=== PATIENT | male | born 1970 | race Caucasian/White ===

== ENCOUNTER 2024-10-24 06:52 | Emergency (ER) | payer BC ==
--- NOTE | 2024-10-24 07:21 | ED ---
General Adult HPI - General Chief complaint: Upper Respiratory Infection Stated complaint: cough Time Seen by Provider: 10/24/24 07:02 Source: patient, RN notes reviewed Mode of arrival: ambulatory Limitations: no limitations - History of Present Illness Initial comments: Patient is a 54-year-old male present to the emergency department not feeling well for the past 3 days. Patient has congestion and cough. Patient has headache. Patient has had significant fatigue. Patient feels achy all over. Patient states cough has caused emesis. Patient has decreased appetite. Patient has had a couple episodes of diarrhea. Patient has not ate much in the last 2 to 3 days and is concerned about being a little bit dehydrated. - Related Data Previous Rx's Medication Instructions Recorded Ondansetron Odt [Zofran Odt] 4 mg PO Q8HR PRN #10 tab 10/24/24 Allergies Allergy/AdvReac Type Severity Reaction Status Date / Time No Known Allergies Allergy Verified 10/24/24 06:59 Review of Systems ROS Statement: Those systems with pertinent positive or pertinent negative responses have been documented in the HPI. ROS Other: All systems not noted in ROS Statement are negative. Constitutional: Denies: fever Eyes: Denies: eye pain ENT: Reports: congestion. Denies: ear pain Respiratory: Reports: cough Cardiovascular: Denies: palpitations Endocrine: Reports: fatigue Gastrointestinal: Reports: nausea Skin: Denies: rash Neurological: Reports: headache. Denies: weakness, confusion Past Medical History Past Medical History: No Reported History History of Any Multi-Drug Resistant Organisms: None Reported Past Surgical History: No Surgical Hx Reported Past Psychological History: No Psychological Hx Reported Smoking Status: Former smoker Past Alcohol Use History: Occasional Past Drug Use History: None Reported General Exam Limitations: no limitations General appearance: alert, in no apparent distress Head exam: Present: atraumatic Eye exam: Present: normal appearance, PERRL ENT exam: Present: normal oropharynx Neck exam: Present: normal inspection. Absent: tenderness, meningismus Respiratory exam: Present: normal lung sounds bilaterally Cardiovascular Exam: Present: regular rate, normal rhythm GI/Abdominal exam: Present: soft, tenderness (Mild diffuse tenderness) Extremities exam: Present: normal inspection. Absent: calf tenderness Neurological exam: Present: alert Psychiatric exam: Present: normal affect, normal mood Skin exam: Present: normal color Course Vital Signs 10/24/24 10/24/24 10/24/24 06:55 08:11 08:12 Temperature 98.2 F 97.9 F Pulse Rate 72 56 L Pulse Rate [ 58 L Production Assembly Supervisor ] Respiratory 18 17 Rate Blood Pressure 133/88 138/83 O2 Sat by Pulse 97 95 Oximetry 10/24/24 08:49 Temperature 97.7 F Pulse Rate 60 Pulse Rate [ Production Assembly Supervisor ] Respiratory 17 Rate Blood Pressure 126/89 O2 Sat by Pulse 94 L Oximetry EKG Findings - EKG Results: EKG: interpreted by ERMD (Left axis. Low voltage. Nonspecific T waves. Artifact present.), sinus rhythm Medical Decision Making - Medical Decision Making Was pt. sent in by a medical professional or institution (, PA, BIG DATA SOFTWARE ENGINEER, urgent ca re, hospital, or fci...) When possible be specific @ -No Did you speak to anyone other than the patient for history (EMS, parent, family, police, friend...)? What history was obtained from this source @ -No Did you review nursing and triage notes (agree or disagree)? Why? @ -I reviewed and agree with nursing and triage notes Were old charts reviewed (outside hosp., previous admission, EMS record, old EKG, old radiological studies, urgent care reports/EKG's, fci records)? Report findings @ -No old charts were reviewed Differential Diagnosis (chest pain, altered mental status, abdominal pain women, abdominal pain men, vaginal bleeding, weakness, fever, dyspnea, syncope, headache, dizziness, GI bleed, back pain, seizure, CVA, palpatations, mental health, musculoskeletal)? @ -Differential Fever: Pneumonia, viral URI, endocarditis, myocarditis, pericarditis, otitis, sinusitis, peritonsillar Abscess, retropharyngeal Abscess, epiglottitis, peritonitis, appendicitis, [place] cystitis, diverticulitis, hepatitis, colitis, UTI, PID, TOA, pyelonephritis, prostatitis, epididymitis, meningitis, encephalitis, pulmonary embolism, CVA, thyroid storm, pancreatitis, adrenal crisis, cavernous sinus thrombosis, this is not meant to be an all-inclusive list. EKG interpreted by me (3pts min.). @ -As above X-rays interpreted by me (1pt min.). @ -Chest x-ray shows no acute process CT interpreted by me (1pt min.). @ -None done U/S interpreted by me (1pt. min.). @ -None done What testing was considered but not performed or refused? (CT, X-rays, U/S, labs)? Why? @ -None What meds were considered but not given or refused? Why? @ -Consider Tamiflu however symptoms are greater than 48 hours Did you discuss the management of the patient with other professionals (mikey grimes i.e. , PA, BIG DATA SOFTWARE ENGINEER, lab, RT, psych nurse, social service director, reel tender, teacher, branch lending officer, case loader operator)? Give summary @ -No Was smoking cessation discussed for >3mins.? @ -No Was critical care preformed (if so, how long)? @ -No Were there social determinants of health that impacted care today? How? (Homelessness, low income, unemployed, alcoholism, drug addiction, transportation, low edu. Level, literacy, decrease access to med. care, care home, rehab)? @ -No Was there de-escalation of care discussed even if they declined (Discuss DNR or withdrawal of care, Hospice)? DNR status @ -No What co-morbidities impacted this encounter? (DM, HTN, Smoking, COPD, CAD, Cancer, CVA, ARF, Chemo, Hep., AIDS, mental health diagnosis, sleep apnea, morbid obesity)? @ -None Was patient admitted / discharged? Hospital course, mention meds given and route, prescriptions, significant lab abnormalities, going to OR and other pertinent info. @ -Patient presents with multiple complaints consistent with probable viral syndrome. Influenza positive, evaluation otherwise unremarkable. Patient reevaluated and updated. On reevaluation patient is resting comfortably in bed and does feel somewhat better. Patient to be discharged. Undiagnosed new problem with uncertain prognosis? @ -No Drug Therapy requiring intensive monitoring for toxicity (Heparin, Nitro, Insulin, Cardizem)? @ -No Were any procedures done? @ -No Diagnosis/symptom? @ -Influenza Acute, or Chronic, or Acute on Chronic? @ -Acute Uncomplicated (without systemic symptoms) or Complicated (systemic symptoms)? @ -Default Side effects of treatment? @ -No Exacerbation, Progression, or Severe Exacerbation? @ -No Poses a threat to life or bodily function? How? (Chest pain, [place], [place], pneumonia, PE, COPD, DKA, ARF, appy, cholecystitis, CVA, Diverticulitis, Homicidal, Suicidal, threat to staff... and all critical care pts) @ -No - Lab Data Result diagrams: 10/24/24 08:03 10/24/24 08:03 Lab Results 10/24/24 10/24/24 10/24/24 Range/Units 08:03 08:03 08:03 WBC 8.9 (3.8-10.6) k/uL RBC 4.93 (4.30-5.90) m/uL Hgb 15.2 (13.0-17.5) gm/dL Hct 44.3 (39.0-53.0) % MCV 89.7 (80.0-100.0) fL MCH 30.8 (25.0-35.0) pg MCHC 34.4 (31.0-37.0) g/dL RDW 12.5 (11.5-15.5) % Plt Count 283 (150-450) k/uL MPV 7.6 Neutrophils % 79 % Lymphocytes % 11 % Monocytes % 9 % Eosinophils % 0 % Basophils % 0 % Neutrophils # 7.0 (1.3-7.7) k/uL Lymphocytes # 1.0 (1.0-4.8) k/uL Monocytes # 0.8 (0-1.0) k/uL Eosinophils # 0.0 (0-0.7) k/uL Basophils # 0.0 (0-0.2) k/uL PT 10.5 (10.0-12.5) sec INR 0.9 (<1.2) APTT 23.8 (22.0-30.0) sec Sodium (137-145) mmol/L Potassium (3.5-5.1) mmol/L Chloride (98-107) mmol/L Carbon Dioxide (22-30) mmol/L Anion Gap mmol/L BUN (9-20) mg/dL Creatinine (0.66-1.25) mg/dL Est GFR (CKD-EPI)AfAm (>60 ml/min/1.73 sqM) Est GFR (CKD-EPI)NonAf (>60 ml/min/1.73 sqM) Glucose (74-99) mg/dL Plasma Lactic Acid Cas (0.7-2.0) mmol/L Calcium (8.4-10.2) mg/dL Magnesium (1.6-2.3) mg/dL Total Bilirubin (0.2-1.3) mg/dL AST (17-59) U/L ALT (4-49) U/L Alkaline Phosphatase (38-126) U/L Troponin I (0.000-0.034) ng/mL Total Protein (6.3-8.2) g/dL Albumin (3.5-5.0) g/dL Influenza Type A (PCR) Detected A (Not Detectd) Influenza Type B (PCR) Not Detected (Not Detectd) RSV (PCR) Not Detected (Not Detectd) SARS-CoV-2 (PCR) Not Detected (Not Detectd) 10/24/24 10/24/24 10/24/24 Range/Units 08:03 08:03 08:03 WBC (3.8-10.6) k/uL RBC (4.30-5.90) m/uL Hgb (13.0-17.5) gm/dL Hct (39.0-53.0) % MCV (80.0-100.0) fL MCH (25.0-35.0) pg MCHC (31.0-37.0) g/dL RDW (11.5-15.5) % Plt Count (150-450) k/uL MPV Neutrophils % % Lymphocytes % % Monocytes % % Eosinophils % % Basophils % % Neutrophils # (1.3-7.7) k/uL Lymphocytes # (1.0-4.8) k/uL Monocytes # (0-1.0) k/uL Eosinophils # (0-0.7) k/uL Basophils # (0-0.2) k/uL PT (10.0-12.5) sec INR (<1.2) APTT (22.0-30.0) sec Sodium 132 L (137-145) mmol/L Potassium 4.0 (3.5-5.1) mmol/L Chloride 96 L (98-107) mmol/L Carbon Dioxide 26 (22-30) mmol/L Anion Gap 10 mmol/L BUN 22 H (9-20) mg/dL Creatinine 0.81 (0.66-1.25) mg/dL Est GFR (CKD-EPI)AfAm >90 (>60 ml/min/1.73 sqM) Est GFR (CKD-EPI)NonAf >90 (>60 ml/min/1.73 sqM) Glucose 126 H (74-99) mg/dL Plasma Lactic Acid Cas 1.1 (0.7-2.0) mmol/L Calcium 8.8 (8.4-10.2) mg/dL Magnesium 2.3 (1.6-2.3) mg/dL Total Bilirubin 0.6 (0.2-1.3) mg/dL AST 29 (17-59) U/L ALT 33 (4-49) U/L Alkaline Phosphatase 70 (38-126) U/L Troponin I <0.012 (0.000-0.034) ng/mL Total Protein 6.9 (6.3-8.2) g/dL Albumin 4.0 (3.5-5.0) g/dL Influenza Type A (PCR) (Not Detectd) Influenza Type B (PCR) (Not Detectd) RSV (PCR) (Not Detectd) SARS-CoV-2 (PCR) (Not Detectd) Disposition Clinical Impression: Influenza Disposition: HOME SELF-CARE Condition: Stable Instructions (If sedation given, give patient instructions): Influenza (ED) Additional Instructions: Please follow-up with your primary care physician in the next few days for recheck. Prescription for nausea medication sent to pharmacy. [id number] Tylenol and Motrin as needed. Return for difficulty breathing, not tolerating o ral intake, worsening symptoms or other concerns. Prescriptions: Ondansetron Odt [Zofran Odt] 4 mg PO Q8HR PRN #10 tab PRN Reason: Nausea Is patient prescribed a controlled substance at d/c from ED?: No Referrals: None,Stated [Primary Care Provider] - 1-2 days Forms: Area PCPs Time of Disposition: 09:25
[2024-10-24] MEDS: SODIUM CHLORIDE 0.9% 1,000 ML IV STA (07:49)
[2024-10-24] MEDS: ACETAMINOPHEN IV (For NPO) 1,000 MG in EMPTY BAG 1 BAG IVPB STA (07:50)
[2024-10-24] MEDS: ONDANSETRON 4 MG/2 ML VIAL IVP STA (07:52)
[2024-10-24] MEDS: FAMOTIDINE 20 MG/2 ML VIAL IV STA (07:54)
--- NOTE | 2024-10-24 08:20 | XR ---
Chest, 2 view. HISTORY: Weakness COMPARISON: None TECHNIQUE: PA and lateral views the chest are obtained. FINDINGS: The lungs are clear and there is no consolidative or interstitial opacity. There is no pleural effusion or pneumothorax. There is mild cardiomegaly. The pulmonary vasculature is not congested. The osseous structures are intact. IMPRESSION: Mild cardiomegaly without overt CHF. No acute cardiopulmonary disease. [facility], , 10/24/2024 8:18 AM
[2024-10-24 08:36] LABS: Basophils % (A) 0 %; Eosinophils % (A) 0 %; HCT 44.3 % (39.0-53.0); HGB 15.2 gm/dL (13.0-17.5); Lymphocytes % (A) 11 %; MCH 30.8 pg (25.0-35.0); MCHC 34.4 g/dL (31.0-37.0); MCV 89.7 fL (80.0-100.0); Mean Platelet Volume 7.6; Monocytes # (A) 0.8 k/uL (0-1.0); Monocytes % (A) 9 %; Neutrophils % (A) 79 %; Platelet Count 283 k/uL (150-450); RBC 4.93 m/uL (4.30-5.90); RDW 12.5 % (11.5-15.5); WBC 8.9 k/uL (3.8-10.6)
[2024-10-24 08:45] LABS: INR 0.9 (<1.2); Partial Thromboplastin Time 23.8 sec (22.0-30.0); Prothrombin Time 10.5 sec (10.0-12.5)
[2024-10-24 08:50] LABS: ALT 33 U/L (4-49); AST 29 U/L (17-59); African American GFR (CKD) >90 (>60 ml/min/1.73 sqM); Alkaline Phosphatase 70 U/L (38-126); Anion Gap 10 mmol/L; Blood Urea Nitrogen 22 mg/dL (9-20); Calcium 8.8 mg/dL (8.4-10.2); Carbon Dioxide 26 mmol/L (22-30); Chloride 96 mmol/L (98-107); Glucose 126 mg/dL (74-99); Magnesium 2.3 mg/dL (1.6-2.3); Non-African American GFR(CKD) >90 (>60 ml/min/1.73 sqM); Sodium 132 mmol/L (137-145); Total Bilirubin 0.6 mg/dL (0.2-1.3); Total Protein 6.9 g/dL (6.3-8.2)
[2024-10-24 09:12] LABS: Influenza A Detected (Not Detectd); Influenza B Not Detected (Not Detectd); RSV Not Detected (Not Detectd)
[2024-10-24] MEDS: IBUPROFEN 600 MG TAB PO STA (09:51)
[2024-10-24 10:23] VITALS: BP 125/87; PULSE 77; RESP 18; TEMP 97.8
== END 2024-10-24 10:23 | disposition home or self-care (01) ==
LOC: EC 06:52
DX: J11.1 Influenza due to unidentified influenza virus with other respiratory manifestations (principal); B95.0 Streptococcus, group A, as the cause of diseases classified elsewhere; Z87.891 Personal history of nicotine dependence
CPT/HCPCS: 36415; 93005; 80053; 83605; 83735; 84484; 85025; 85610; 85730; 87636; 71046; 99284; 96374; 96375; 96361; J2405; J3490; J0131

== ENCOUNTER 2024-10-28 08:47 | Emergency (ER) | payer BC ==
--- NOTE | 2024-10-28 09:19 | ED ---
General Adult HPI - General Chief complaint: Abdominal Pain Stated complaint: ABD Pn Unble to Eat x8days Time Seen by Provider: 10/28/24 08:51 Source: patient, RN notes reviewed, old records reviewed Mode of arrival: ambulatory Limitations: no limitations - History of Present Illness Initial comments: 54-year-old male with no significant past medical history presenting with multiple complaints, recent diagnosis of influenza. Patient states he has had a poor appetite for at least 7 days. He has had nausea and generalized abdominal discomfort. No continued fever. He states he has had several dark stools as well. - Related Data Home Medications Medication Instructions Recorded Confirmed Acetaminophen [Tylenol Arthritis] 650 mg PO Q8H PRN 10/28/24 10/28/24 Aleve Back And Muscle Pain 220 mg PO BID PRN 10/28/24 10/28/24 Allergies Allergy/AdvReac Type Severity Reaction Status Date / Time No Known Allergies Allergy Verified 10/28/24 11:14 Review of Systems ROS Statement: Those systems with pertinent positive or pertinent negative responses have been documented in the HPI. ROS Other: All systems not noted in ROS Statement are negative. Past Medical History Past Medical History: No Reported History History of Any Multi-Drug Resistant Organisms: None Reported Past Surgical History: No Surgical Hx Reported Past Psychological History: No Psychological Hx Reported Smoking Status: Former smoker Past Alcohol Use History: Occasional Past Drug Use History: None Reported General Exam Limitations: no limitations General appearance: alert, in no apparent distress Head exam: Present: atraumatic, normocephalic Eye exam: Present: normal appearance, PERRL ENT exam: Present: mucous membranes dry Neck exam: Present: normal inspection. Absent: tenderness, meningismus Respiratory exam: Present: normal lung sounds bilaterally. Absent: respiratory distress, wheezes Cardiovascular Exam: Present: regular rate, normal rhythm GI/Abdominal exam: Present: soft, distended, tenderness (Mild) Extremities exam: Present: normal inspection, normal capillary refill Neurological exam: Present: alert, oriented X3, CN II-XII intact, normal gait. Absent: motor sensory deficit Psychiatric exam: Present: normal affect, normal mood Skin exam: Present: warm, dry, intact. Absent: cyanosis, diaphoretic Course Vital Signs 10/28/24 10/28/24 10/28/24 08:51 09:52 09:54 Temperature 98.2 F 98.6 F Pulse Rate 93 85 Pulse Rate [ 94 Pv Design Engineer ] Respiratory 18 15 Rate Blood Pressure 123/83 124/83 O2 Sat by Pulse 96 90 L Oximetry 10/28/24 10:44 Temperature Pulse Rate 72 Pulse Rate [ Pv Design Engineer ] Respiratory 16 Rate Blood Pressure 135/83 O2 Sat by Pulse 98 Oximetry Medical Decision Making - Medical Decision Making Was pt. sent in by a medical professional or institution (, RADHA, LEAD INFRASTRUCTURE ARCHITECT, urgent care, hospital, or jail...) When possible be specific @ -No Did you speak to anyone other than the patient for history (EMS, parent, family, police, friend...)? What history was obtained from this source @ -No Did you review nursing and triage notes (agree or disagree)? Why? @ -I reviewed and agree with nursing and triage notes Were old charts reviewed (outside hosp., previous admission, EMS record, old EKG, old radiological studies, urgent care reports/EKG's, jail records)? Report findings @ -No old charts were reviewed Differential Abdominal Pain Men: Appendicitis, cholecystitis, diverticulosis, ischemic bowel, pancreatitis, hepatitis, UTI, gastroenteritis, AAA, incarcerated hernia, bowel obstruction, constipation, inflammatory bowel, hepatitis, peptic ulcer disease, splenic inf arction, perforated viscus, testicular torsion, this is not meant to be an all- inclusive list EKG interpreted by me (3pts min.). @ -Sinus rhythm rate of 83, [place] interval 150, QRS duration 89, QTc [address] segment changes. X-rays interpreted by me (1pt min.). @ -None done CT interpreted by me (1pt min.). @ -None done U/S interpreted by me (1pt. min.). @ -None done What testing was considered but not performed or refused? (CT, X-rays, U/S, labs)? Why? @ -None What meds were considered but not given or refused? Why? @ -None Did you discuss the management of the patient with other professionals (professionals i.e. RADHA Nguyen, LEAD INFRASTRUCTURE ARCHITECT, lab, RT, psych nurse, director social, wash rack operator, teacher, air defense control officer, manager of case)? Give summary @ -No Was smoking cessation discussed for >3mins.? @ -No Was critical care preformed (if so, how long)? @ -No Were there social determinants of health that impacted care today? How? (Homelessness, low income, unemployed, alcoholism, drug addiction, transportati on, low edu. Level, literacy, decrease access to med. care, intermediate, rehab)? @ -No Was there de-escalation of care discussed even if they declined (Discuss DNR or withdrawal of care, Hospice)? DNR status @ -No What co-morbidities impacted this encounter? (DM, HTN, Smoking, COPD, CAD, Cancer, CVA, ARF, Chemo, Hep., AIDS, mental health diagnosis, sleep apnea, morbid obesity)? @ -None Was patient admitted / discharged? Hospital course, mention meds given and route, prescriptions, significant lab abnormalities, going to OR and other pertinent info. @ -54-year-old male with abdominal discomfort and recent diagnosis of influenza. Patient has had poor appetite and is concerned about dehydration. I did obtain laboratory testing including CBC, CMP, urinalysis. He has 2+ ketones in urine without any other acute findings. After symptomatic treatment of IV fluid and pain medication he is feeling better. He is encouraged on oral rehydration and return parameters. Undiagnosed new problem with uncertain prognosis? @ -No Drug Therapy requiring intensive monitoring for toxicity (Heparin, Nitro, Insulin, Cardizem)? @ -No Were any procedures done? @ -No Diagnosis/symptom? @ -Influenza A, dehydration Acute, or Chronic, or Acute on Chronic? @ -Acute Uncomplicated (without systemic symptoms) or Complicated (systemic symptoms)? @ -Default Side effects of treatment? @ -No Exacerbation, Progression, or Severe Exacerbation? @ -No Poses a threat to life or bodily function? How? (Chest pain, [place], [place], pneumonia, PE, COPD, DKA, ARF, appy, cholecystitis, CVA, Diverticulitis, Homicidal, Suic idal, threat to staff... and all critical care pts) @ -No - Lab Data Result diagrams: 10/28/24 09:36 10/28/24 09:36 Lab Results 10/28/24 10/28/24 10/28/24 Range/Units 09:36 09:36 09:36 WBC 10.5 (3.8-10.6) k/uL RBC 4.79 (4.30-5.90) m/uL Hgb 14.6 (13.0-17.5) gm/dL Hct 42.7 (39.0-53.0) % MCV 89.1 (80.0-100.0) fL MCH 30.4 (25.0-35.0) pg MCHC 34.1 (31.0-37.0) g/dL RDW 12.2 (11.5-15.5) % Plt Count 345 (150-450) k/uL MPV 7.4 Neutrophils % 76 % Lymphocytes % 16 % Monocytes % 5 % Eosinophils % 1 % Basophils % 0 % Neutrophils # 8.0 H (1.3-7.7) k/uL Lymphocytes # 1.7 (1.0-4.8) k/uL Monocytes # 0.5 (0-1.0) k/uL Eosinophils # 0.1 (0-0.7) k/uL Basophils # 0.0 (0-0.2) k/uL PT 10.7 (10.0-12.5) sec INR 1.0 (<1.2) APTT 23.9 (22.0-30.0) sec Sodium 134 L (137-145) mmol/L Potassium 4.1 (3.5-5.1) mmol/L Chloride 95 L (98-107) mmol/L Carbon Dioxide 28 (22-30) mmol/L Anion Gap 11 mmol/L BUN 16 (9-20) mg/dL Creatinine 0.82 (0.66-1.25) mg/dL Est GFR (CKD-EPI)AfAm >90 (>60 ml/min/1.73 sqM) Est GFR (CKD-EPI)NonAf >90 (>60 ml/min/1.73 sqM) Glucose 132 H (74-99) mg/dL Plasma Lactic Acid Cas (0.7-2.0) mmol/L Calcium 9.3 (8.4-10.2) mg/dL Total Bilirubin 0.9 (0.2-1.3) mg/dL AST 20 (17-59) U/L ALT 22 (4-49) U/L Alkaline Phosphatase 63 (38-126) U/L Total Protein 7.0 (6.3-8.2) g/dL Albumin 4.1 (3.5-5.0) g/dL Lipase 209 (23-300) U/L Urine Color Urine Appearance (Clear) Urine pH (5.0-8.0) Ur Specific [place] (1.001-1.035) Urine Protein (Negative) Urine Glucose (UA) (Negative) Urine Ketones (Negative) Urine Blood (Negative) Urine Nitrite (Negative) Urine Bilirubin (Negative) Urine Urobilinogen (<2.0) mg/dL Ur Leukocyte Esterase (Negative) Urine RBC (0-5) /hpf Urine WBC (0-5) /hpf Ur Squamous Epith Cells (0-4) /hpf Urine Mucus (None) /hpf 10/28/24 10/28/24 Range/Units 09:36 11:13 WBC (3.8-10.6) k/uL RBC (4.30-5.90) m/uL Hgb (13.0-17.5) gm/dL Hct (39.0-53.0) % MCV (80.0-100.0) fL MCH (25.0-35.0) pg MCHC (31.0-37.0) g/dL RDW (11.5-15.5) % Plt Count (150-450) k/uL MPV Neutrophils % % Lymphocytes % % Monocytes % % Eosinophils % % Basophils % % Neutrophils # (1.3-7.7) k/uL Lymphocytes # (1.0-4.8) k/uL Monocytes # (0-1.0) k/uL Eosinophils # (0-0.7) k/uL Basophils # (0-0.2) k/uL PT (10.0-12.5) sec INR (<1.2) APTT (22.0-30.0) sec Sodium (137-145) mmol/L Potassium (3.5-5.1) mmol/L Chloride (98-107) mmol/L Carbon Dioxide (22-30) mmol/L Anion Gap mmol/L BUN (9-20) mg/dL Creatinine (0.66-1.25) mg/dL Est GFR (CKD-EPI)AfAm (>60 ml/min/1.73 sqM) Est GFR (CKD-EPI)NonAf (>60 ml/min/1.73 sqM) Glucose (74-99) mg/dL Plasma Lactic Acid Cas 1.0 (0.7-2.0) mmol/L Calcium (8.4-10.2) mg/dL Total Bilirubin (0.2-1.3) mg/dL AST (17-59) U/L ALT (4-49) U/L Alkaline Phosphatase (38-126) U/L Total Protein (6.3-8.2) g/dL Albumin (3.5-5.0) g/dL Lipase (23-300) U/L Urine Color Yellow Urine Appearance Cloudy (Clear) Urine pH 6.5 (5.0-8.0) Ur Specific [place] 1.028 (1.001-1.035) Urine Protein 1+ H (Negative) Urine Glucose (UA) Negative (Negative) Urine Ketones 2+ H (Negative) Urine Blood Negative (Negative) Urine Nitrite Negative (Negative) Urine Bilirubin Negative (Negative) Urine Urobilinogen 2.0 (<2.0) mg/dL Ur Leukocyte Esterase Negative (Negative) Urine RBC 1 (0-5) /hpf Urine WBC 3 (0-5) /hpf Ur Squamous Epith Cells <1 (0-4) /hpf Urine Mucus Many H (None) /hpf Disposition Clinical Impression: Influenza, Dehydration Disposition: HOME SELF-CARE Condition: Fair Instructions (If sedation given, give patient instructions): Influenza (ED), Dehydration (ED) Additional Instructions: Please drink plenty of fluids. Please take Tylenol for discomfort. Please follow closely with your primary care provider. Is patient prescribed a controlled substance at d/c from ED?: No Referrals: Ky Roper MD [Primary Care Provider] - 1-2 days Time of Disposition: 12:23
[2024-10-28] MEDS: PANTOPRAZOLE 40 MG/10 ML VIAL IVP STA (09:37)
[2024-10-28] MEDS: SODIUM CHLORIDE 0.9% 1,000 ML IV STA (09:39)
[2024-10-28] MEDS: HYDROmorphone 0.5 MG/0.5 ML SYRINGE IVP STA (09:40)
[2024-10-28 09:53] LABS: Basophils % (A) 0 %; Eosinophils # (A) 0.1 k/uL (0-0.7); Eosinophils % (A) 1 %; HCT 42.7 % (39.0-53.0); HGB 14.6 gm/dL (13.0-17.5); Lymphocytes # (A) 1.7 k/uL (1.0-4.8); Lymphocytes % (A) 16 %; MCH 30.4 pg (25.0-35.0); MCHC 34.1 g/dL (31.0-37.0); MCV 89.1 fL (80.0-100.0); Mean Platelet Volume 7.4; Monocytes # (A) 0.5 k/uL (0-1.0); Monocytes % (A) 5 %; Neutrophils % (A) 76 %; Platelet Count 345 k/uL (150-450); RBC 4.79 m/uL (4.30-5.90); RDW 12.2 % (11.5-15.5); WBC 10.5 k/uL (3.8-10.6)
[2024-10-28 09:54] VITALS: TEMP 98.6
[2024-10-28 10:04] LABS: Partial Thromboplastin Time 23.9 sec (22.0-30.0); Prothrombin Time 10.7 sec (10.0-12.5)
[2024-10-28 10:10] LABS: ALT 22 U/L (4-49); AST 20 U/L (17-59); African American GFR (CKD) >90 (>60 ml/min/1.73 sqM); Albumin 4.1 g/dL (3.5-5.0); Alkaline Phosphatase 63 U/L (38-126); Anion Gap 11 mmol/L; Blood Urea Nitrogen 16 mg/dL (9-20); Calcium 9.3 mg/dL (8.4-10.2); Carbon Dioxide 28 mmol/L (22-30); Chloride 95 mmol/L (98-107); Glucose 132 mg/dL (74-99); Lipase 209 U/L (23-300); Non-African American GFR(CKD) >90 (>60 ml/min/1.73 sqM); Potassium 4.1 mmol/L (3.5-5.1); Sodium 134 mmol/L (137-145); Total Bilirubin 0.9 mg/dL (0.2-1.3)
[2024-10-28] MEDS: KETOROLAC 15 MG/ML 1 ML VIAL IVP STA (10:40)
[2024-10-28] MEDS: SODIUM CHLORIDE 0.9% 500 ML 500 ML IV ONE (10:41)
[2024-10-28 12:04] LABS: Appearance,Urine Cloudy (Clear); Bilirubin,Urine Negative (Negative); Blood,Urine Negative (Negative); Color,Urine Yellow; Glucose,Urine (UA) Negative (Negative); Ketones,Urine 2+ (Negative); Leukocyte Esterase,Urine Negative (Negative); Mucus,Urine Many /hpf; Nitrite,Urine Negative (Negative); PH, Urine 6.5 (5.0-8.0); Protein,Urine 1+ (Negative); RBC,Urine 1 /hpf (0-5); Specific Gravity,Urine 1.028 (1.001-1.035); Squamous Epithelial Cell,Urine <1 /hpf (0-4); WBC,Urine 3 /hpf (0-5)
[2024-10-28 12:49] VITALS: BP 127/82; PULSE 79; RESP 18
== END 2024-10-28 12:50 | disposition home or self-care (01) ==
LOC: EC 08:47
DX: J10.1 Influenza due to other identified influenza virus with other respiratory manifestations (principal); E86.0 Dehydration; Z87.891 Personal history of nicotine dependence
CPT/HCPCS: 36415; 93005; 80053; 83605; 83690; 85025; 85610; 85730; 81001; 99284; 96374; 96375 ×2; 96361 ×2; J1885; J1171; J2470

== ENCOUNTER 2024-11-21 09:56 | Inpatient (IN) | payer BC ==
--- NOTE | 2024-11-21 10:28 | ED ---
Abdominal Pain HPI - General Chief Complaint: Abdominal Pain Stated Complaint: back and rib pain Time Seen by Provider: 11/21/24 10:25 Source: patient, family, RN notes reviewed, old records reviewed Mode of arrival: ambulatory Limitations: no limitations - History of Present Illness Initial Comments: Patient is a 54-year-old male presented to the ER for evaluation of abdominal pain. Patient reports over the last month he has been having upper abdominal discomfort with radiation to his back. Patient has been seen in numerous different emergency departments for similar complaints. Patient was seen here on 11 06 24 after being seen by urgent care for evaluation of upper abdomen and back pain. He states pain originated after lifting something heavy at work. Workup was negative on 11 06 24 and believed to musculoskeletal nature. He was prescribed muscle relaxers and [place] which numbed the pain but states he is currently out of these. States the pain is sharp and consistent in nature to his upper abdomen radiating to his back. He was seen at [facility] about one week ago and diagnosed with a kidney stone. They recommended to follow-up with urology but he is unable to get until a month from now. Patient states pain has continued in bilateral upper quadrants and back. Patient was seen at urgent care on Friday and was prescribed Toradol which is not touching the pain. He is also taking Zofran for nausea. Patient reports constipation since Friday and contributed this to opioid use. He states he took MiraLAX on Friday and had a very large black bowel movement. He was relieved of constipation but states since then he has been having black bowel movements. He is not on blood thinners. No history of GI bleeds or kidney stones. He has not had a colonoscopy or EGD. Patient denies any fevers, chills, chest pain, shortness of breath, urinary complaints. No other complaints at this time. - Related Data Home Medications Medication Instructions Recorded Confirmed Acetaminophen [Tylenol Arthritis] 650 mg PO Q8H PRN 10/28/24 10/28/24 Aleve Back And Muscle Pain 220 mg PO BID PRN 10/28/24 10/28/24 Previous Rx's Medication Instructions Recorded Cyclobenzaprine [Flexeril] 5 mg PO TID PRN 7 Days #21 tablet 11/06/24 HYDROcodone/APAP 5-325MG [[place] 1 tab PO Q6HR PRN 3 Days #12 tab 11/06/24 5-325] Lidocaine 5% Patch [Lidoderm 5% 1 patch TOPICAL DAILY PRN 14 Days 11/06/24 Patch] #14 patch Allergies Allergy/AdvReac Type Severity Reaction Status Date / Time No Known Allergies Allergy Verified 11/21/24 10:05 Review of Systems ROS Statement: Those systems with pertinent positive or pertinent negative responses have been documented in the HPI. ROS Other: All systems not noted in ROS Statement are negative. Past Medical History Past Medical History: No Reported History Additional Past Medical History / Comment(s): kidney stone History of Any Multi-Drug Resistant Organisms: None Reported Past Surgical History: No Surgical Hx Reported Past Psychological History: No Psychological Hx Reported Smoking Status: Former smoker Past Alcohol Use History: Occasional Past Drug Use History: None Reported General Exam Limitations: no limitations General appearance: alert, in no apparent distress Respiratory exam: Present: normal lung sounds bilaterally. Absent: respiratory distress, wheezes, rales, rhonchi, stridor Cardiovascular Exam: Present: regular rate, normal rhythm, normal heart sounds. Absent: systolic murmur, diastolic murmur, rubs, gallop, clicks GI/Abdominal exam: Present: soft, tenderness (Upper quadrants), normal bowel sounds Rectal exam: Present: normal inspection, normal rectal tone Extremities exam: Present: normal inspection, full ROM, normal capillary refill. Absent: tenderness, pedal edema, joint swelling, calf tenderness Back exam: Present: CVA tenderness (R), CVA tenderness (L) Neurological exam: Present: alert, oriented X3, CN II-XII intact Skin exam: Present: warm, dry, intact, normal color. Absent: rash Course Vital Signs 11/21/24 10:02 Temperature 98 F Pulse Rate 86 Respiratory 20 Rate Blood Pressure 124/85 O2 Sat by Pulse 98 Oximetry - Reevaluation(s) Reevaluation #1: 11/21/24 11:11 Rectal exam performed and chaperoned by Harvinder SMITH. 11/21/24 13:05 Case discussed with José Bergeron NP, for admission. Medical Decision Making - Medical Decision Making Was pt. sent in by a medical professional or institution (, RADHA, ASIC ENGINEER, urgent care, hospital, or group home...) When possible be specific @ -No Did you speak to anyone other than the patient for history (EMS, parent, family, police, friend...)? What history was obtained from this source @ -Patient's , at bedside, aiding in HPI and past medical history. Did you review nursing and triage notes (agree or disagree)? Why? @ -I reviewed and agree with nursing and triage notes Were old charts reviewed (outside hosp., previous admission, EMS record, old EKG, old radiological studies, urgent care reports/EKG's, group home records)? Report findings @ -ER visit from 11/06/24 patient seen for back pain. CTs thoracic lumbar spine showing no significant abnormality. CTA chest abdomen pelvis no evidence of pulmonary embolism. No aneurysms or dissections of aorta. Inflammatory changes adjacent to duodenum and pancreatic head. Multiple punctate nonobstructing left renal calculus. Mild prostatic hypertrophy. Laboratory studies obtained at that time showed a leukocytosis of 12.2 with a left shift. Troponin undetectable. No evidence of UTI. Patient discharged home and treated for musculoskeletal pain. Differential Diagnosis (chest pain, altered mental status, abdominal pain women, abdominal pain men, vaginal bleeding, weakness, fever, dyspnea, syncope, headache, dizziness, GI bleed, back pain, seizure, CVA, palpatations, mental health, musculoskeletal)? @ -Differential Abdominal Pain Men: Appendicitis, cholecystitis, diverticulosi s, ischemic bowel, pancreatitis, hepatitis, UTI, gastroenteritis, AAA, incarcerated hernia, bowel obstruction, constipation, inflammatory bowel, hepatitis, peptic ulcer disease, splenic infarction, perforated viscus, testicular torsion, this is not meant to be an all-inclusive list EKG interpreted by me (3pts min.). @ -As above X-rays interpreted by me (1pt min.). @ -None done CT interpreted by me (1pt min.). @ -CT abdomen pelvis showing distal left ureteral stone measuring 0.3 cm with mild hydroureter and mild hydronephrosis. Normal loops of bowel within abdomen and pelvis. U/S interpreted by me (1pt. min.). @ -None done What testing was considered but not performed or refused? (CT, X-rays, U/S, labs)? Why? @ -None What meds were considered but not given or refused? Why? @ -None Did you discuss the management of the patient with other professionals (professionals i.e. , PA, ASIC ENGINEER, lab, RT, psych nurse, administrator social welfare, corner brace block machine operator, teacher, personnel training officer, housing case manager)? Give summary @ -Case discussed with José Bergeron ASIC ENGINEER, for admission. Was smoking cessation discussed for >3mins.? @ -No Was critical care preformed (if so, how long)? @ -No Were there social determinants of health that impacted care today? How? (Homelessness, low income, unemployed, alcoholism, drug addiction, transportation, low edu. Level, literacy, decrease access to med. care, snf, rehab)? @ -Patient does not have primary care provider established. Was there de-escalation of care discussed even if they declined (Discuss DNR or withdrawal of care, Hospice)? DNR status @ -No What co-morbidities impacted this encounter? (DM, HTN, Smoking, COPD, CAD, Cancer, CVA, ARF, Chemo, Hep., AIDS, mental health diagnosis, sleep apnea, morbid obesity)? @ -None Was patient admitted / discharged? Hospital course, mention meds given and route, prescriptions, significant lab abnormalities, going to OR and other pertinent info. @ -Admitted. 54 year old male presenting to the ER for evaluation of abdominal pain. Upon rooming, history and physical exam completed. Vitals within acceptable limits. Patient appears uncomfortable holding his upper abdomen. On exam, there is focal right upper quadrant and left upper quadrant abdominal tenderness with normal bowel sounds. No rebound or guarding. No overlying skin changes. Given patient reporting melena, rectal exam was performed and chaperoned by Harvinder SMITH. No hemorrhoids or anal fissures noted. No gross blood on exam. Laboratory studies obtained showing a hemoglobin of 10.7 this has decreased from 14.6 on . WBC 8.8. Lactic 1.1. Amylase 44, lipase 158. GHULAM with a BUN of 19, creatinine 1.51 with a GFR 52. Urinalysis unrema rkable. Stool occult positive. Given stool occult and decrease in hemoglobin, CT abdomen pelvis was performed showing a distal left ureteral stone measuring 0.3 cm with mild hydroureter and mild hydronephrosis. Loops of bowel within the abdomen and pelvis are normal. Patient given IV fluids, Pepcid, Toradol, Dilaudid and Zofran for symptom control in the ER. As patient has not had prior colonoscopy with positive stool occult and significant drop in hemoglobin in 1 month admission was considered for gastroenterology consultation and possible colonoscopy/EGD. This was discussed with José Bergeron ASIC ENGINEER, who accepts. GI on consult. Upon reevaluation, patient resting comfortably in exam room no signs of acute distress. Results discussed with patient, all questions answered. Patient is agreeable for admission. Patient admitted in stable condition for further evaluation and treatment. Case discussed with ED attending, Dr. Rojas. Undiagnosed new problem with uncertain prognosis? @ -No Drug Therapy requiring intensive monitoring for toxicity (Heparin, Nitro, Insulin, Cardizem)? @ -No Were any procedures done? @ -No Diagnosis/symptom? @ -Stool occult positive/abdominal pain/melena/GHULAM Acute, or Chronic, or Acute on Chronic? @ -Acute Uncomplicated (without systemic symptoms) or Complicated (systemic symptoms)? @ -Complicated Side effects of treatment? @ -No Exacerbation, Progression, or Severe Exacerbation? @ -No Poses a threat to life or bodily function? How? (Chest pain, [place], [place], pneumonia, PE, COPD, DKA, ARF, appy, cholecystitis, CVA, Diverticulitis, Homicidal, Suicidal, threat to staff... and all critical care pts) @ -Yes, GI bleed can be life-threatening. - Lab Data Result diagrams: 11/21/24 10:24 11/21/24 10:24 Lab Results 11/21/24 11/21/24 11/21/24 Range/Units 10:24 10:24 10:24 WBC 8.8 (3.8-10.6) k/uL RBC 3.41 L (4.30-5.90) m/uL Hgb 10.7 L (13.0-17.5) gm/dL Hct 30.8 L (39.0-53.0) % MCV 90.3 (80.0-100.0) fL MCH 31.3 (25.0-35.0) pg MCHC 34.6 (31.0-37.0) g/dL RDW 13.5 (11.5-15.5) % Plt Count 317 (150-450) k/uL MPV 8.0 Neutrophils % 75 % Lymphocytes % 14 % Monocytes % 6 % Eosinophils % 4 % Basophils % 0 % Neutrophils # 6.6 (1.3-7.7) k/uL Lymphocytes # 1.2 (1.0-4.8) k/uL Monocytes # 0.5 (0-1.0) k/uL Eosinophils # 0.3 (0-0.7) k/uL Basophils # 0.0 (0-0.2) k/uL Sodium 135 L (137-145) mmol/L Potassium 5.6 H (3.5-5.1) mmol/L Chloride 99 (98-107) mmol/L Carbon Dioxide 26 (22-30) mmol/L Anion Gap 10 mmol/L BUN 19 (9-20) mg/dL Creatinine 1.51 H (0.66-1.25) mg/dL Est GFR (CKD-EPI)AfAm 60 (>60 ml/min/1.73 sqM) Est GFR (CKD-EPI)NonAf 52 (>60 ml/min/1.73 sqM) Glucose 117 H (74-99) mg/dL Plasma Lactic Acid Cas (0.7-2.0) mmol/L Calcium 9.3 (8.4-10.2) mg/dL Total Bilirubin 0.9 (0.2-1.3) mg/dL AST 40 (17-59) U/L ALT 35 (4-49) U/L Alkaline Phosphatase 60 (38-126) U/L Total Protein 6.8 (6.3-8.2) g/dL Albumin 3.8 (3.5-5.0) g/dL Amylase 44 (30-110) U/L Lipase 158 (23-300) U/L Urine Color Colorless Urine Appearance Clear (Clear) Urine pH 6.0 (5.0-8.0) Ur Specific [place] 1.047 H (1.001-1.035) Urine Protein Negative (Negative) Urine Glucose (UA) Negative (Negative) Urine Ketones Negative (Negative) Urine Blood Negative (Negative) Urine Nitrite Negative (Negative) Urine Bilirubin Negative (Negative) Urine Urobilinogen <2.0 (<2.0) mg/dL Ur Leukocyte Esterase Negative (Negative) Stool Occult Blood (Negative) 11/21/24 11/21/24 Range/Units 11:15 11:20 WBC (3.8-10.6) k/uL RBC (4.30-5.90) m/uL Hgb (13.0-17.5) gm/dL Hct (39.0-53.0) % MCV (80.0-100.0) fL MCH (25.0-35.0) pg MCHC (31.0-37.0) g/dL RDW (11.5-15.5) % Plt Count (150-450) k/uL MPV Neutrophils % % Lymphocytes % % Monocytes % % Eosinophils % % Basophils % % Neutrophils # (1.3-7.7) k/uL Lymphocytes # (1.0-4.8) k/uL Monocytes # (0-1.0) k/uL Eosinophils # (0-0.7) k/uL Basophils # (0-0.2) k/uL Sodium (137-145) mmol/L Potassium (3.5-5.1) mmol/L Chloride (98-107) mmol/L Carbon Dioxide (22-30) mmol/L Anion Gap mmol/L BUN (9-20) mg/dL Creatinine (0.66-1.25) mg/dL Est GFR (CKD-EPI)AfAm (>60 ml/min/1.73 sqM) Est GFR (CKD-EPI)NonAf (>60 ml/min/1.73 sqM) Glucose (74-99) mg/dL Plasma Lactic Acid Cas 1.1 (0.7-2.0) mmol/L Calcium (8.4-10.2) mg/dL Total Bilirubin (0.2-1.3) mg/dL AST (17-59) U/L ALT (4-49) U/L Alkaline Phosphatase (38-126) U/L Total Protein (6.3-8.2) g/dL Albumin (3.5-5.0) g/dL Amylase (30-110) U/L Lipase (23-300) U/L Urine Color Urine Appearance (Clear) Urine pH (5.0-8.0) Ur Specific [place] (1.001-1.035) Urine Protein (Negative) Urine Glucose (UA) (Negative) Urine Ketones (Negative) Urine Blood (Negative) Urine Nitrite (Negative) Urine Bilirubin (Negative) Urine Urobilinogen (<2.0) mg/dL Ur Leukocyte Esterase (Negative) Stool Occult Blood Positive (Negative) - EKG Data -: EKG Interpreted by Me EKG Comments: EKG taken at 10: 37 showing a sinus rhythm. No ST segment elevations or depressions. No T wave abnormalities. Ventricular rate 74, [place] interval 148, QRS duration 83, QT/QTc 362/389. - Radiology Data Radiology results: report reviewed, image reviewed Disposition Clinical Impression: Abdominal pain, Occult blood positive stool, Melena, GHULAM (acute kidney injury) Disposition: ADMITTED IP TO THIS HOSP Condition: Stable Referrals: None,Stated [Primary Care Provider] - 1-2 days Time of Disposition: 13:05
[2024-11-21] MEDS: SODIUM CHLORIDE 0.9% 1,000 ML IV STA (10:59)
[2024-11-21] MEDS: KETOROLAC 15 MG/ML 1 ML VIAL IVP STA (11:03)
[2024-11-21] MEDS: FAMOTIDINE 20 MG/2 ML VIAL IV STA (11:03)
[2024-11-21] MEDS: ONDANSETRON 4 MG/2 ML VIAL IVP STA (11:03)
[2024-11-21 11:13] LABS: Basophils % (A) 0 %; Eosinophils # (A) 0.3 k/uL (0-0.7); Eosinophils % (A) 4 %; HCT 30.8 % (39.0-53.0); HGB 10.7 gm/dL (13.0-17.5); Lymphocytes # (A) 1.2 k/uL (1.0-4.8); Lymphocytes % (A) 14 %; MCH 31.3 pg (25.0-35.0); MCHC 34.6 g/dL (31.0-37.0); MCV 90.3 fL (80.0-100.0); Monocytes # (A) 0.5 k/uL (0-1.0); Monocytes % (A) 6 %; Neutrophils # (A) 6.6 k/uL (1.3-7.7); Neutrophils % (A) 75 %; Platelet Count 317 k/uL (150-450); RBC 3.41 m/uL (4.30-5.90); RDW 13.5 % (11.5-15.5); WBC 8.8 k/uL (3.8-10.6)
[2024-11-21 11:28] LABS: ALT 35 U/L (4-49); African American GFR (CKD) 60 (>60 ml/min/1.73 sqM); Amylase 44 U/L (30-110); Anion Gap 10 mmol/L; Blood Urea Nitrogen 19 mg/dL (9-20); Calcium 9.3 mg/dL (8.4-10.2); Carbon Dioxide 26 mmol/L (22-30); Chloride 99 mmol/L (98-107); Glucose 117 mg/dL (74-99); Lipase 158 U/L (23-300); Non-African American GFR(CKD) 52 (>60 ml/min/1.73 sqM); Sodium 135 mmol/L (137-145); Total Bilirubin 0.9 mg/dL (0.2-1.3)
[2024-11-21 11:30] LABS: AST 40 U/L (17-59); Albumin 3.8 g/dL (3.5-5.0); Alkaline Phosphatase 60 U/L (38-126); Potassium 5.6 mmol/L (3.5-5.1); Total Protein 6.8 g/dL (6.3-8.2)
[2024-11-21 12:22] LABS: Appearance,Urine Clear (Clear); Bilirubin,Urine Negative (Negative); Blood,Urine Negative (Negative); Color,Urine Colorless; Glucose,Urine (UA) Negative (Negative); Ketones,Urine Negative (Negative); Leukocyte Esterase,Urine Negative (Negative); Nitrite,Urine Negative (Negative); Protein,Urine Negative (Negative); Urobilinogen,Urine <2.0 mg/dL (<2.0)
[2024-11-21 12:34] LABS: Specific Gravity,Urine 1.047 (1.001-1.035)
--- NOTE | 2024-11-21 12:40 | CT ---
EXAMINATION TYPE: CT abdomen pelvis w con DATE OF EXAM: 11/21/2024 12:08 PM COMPARISON: 11/06/2024 CLINICAL INDICATION: Male, 54 years old with history of upper abd pain/+occult, abd cramping/diarrhea TECHNIQUE: Axial images were obtained from above the diaphragm to the pubic rami in the axial plane a t 5 mm thick sections. Reconstructed images are reviewed on the computer in the coronal plane. CONTRAST: 100 mL of Isovue 300. Study performed without Oral Contrast DLP: 1518.1 mGycm, Automated exposure control for dose reduction was used. FINDINGS: Limited CT sections are obtained the lung bases. The lung bases are clear. CT ABDOMEN: Liver: Normal Spleen: Normal Pancreas: Normal Adrenal glands: The adrenal glands are normal. Gallbladder: Normal Kidneys: No masses are evident. There is mild left hydronephrosis and hydroureter. Some perinephric s tranding and. Ureteral stranding on the left is present. There is a punctate nonobstructing renal sto ne in the distal left no suspicious right ureteral calcifications. No additional renal stones. Ureter just above the ureterovesical junction measuring approximately 0.3 cm. No cysts are present. Aorta: Normal Inferior vena cava: Normal. CT PELVIS: Loops of bowel within the abdomen and pelvis are normal. There are loops of bowel which are incom pletely distended or lack oral contrast limiting their evaluation. Appendix: Normal as visualized. Urinary bladder: Normal. Genitourinary structures: Prostate is prominent Osseous structures: No suspicious lytic or sclerotic lesions. IMPRESSION: 1. Distal left ureteral stone measuring 0.3 cm with mild hydroureter and mild hydronephrosis. [facility], , 11/21/2024 12:37 PM
[2024-11-21] MEDS ORDERED: NALOXONE 0.4 MG/ML 1 ML VIAL IV PRN (12:58)
[2024-11-21] MEDS ORDERED: ACETAMINOPHEN TAB 325 MG TAB PO PRN (12:58)
[2024-11-21] MEDS: HYDROmorphone 1 MG/ML 1 ML SYRINGE IVP STA (13:23)
[2024-11-21] MEDS: SODIUM CHLORIDE 0.9% 1,000 ML IV SCH (13:26)
[2024-11-21] MEDS: PANTOPRAZOLE 40 MG/10 ML VIAL IVP ONE (17:39)
[2024-11-21] MEDS: HYDROmorphone 1 MG/ML 1 ML SYRINGE IVP PRN (17:47)
--- NOTE | 2024-11-21 18:38 | P.HPIM ---
History of Present Illness H&P Date: 11/21/24 Chief Complaint: Abdominal pain 54-year-old male with medical history of recent flu infection presenting for abdominal pain. Patient says that after a recent bout of the flu, he started to experience some abdominal/back pain and had been seen several times for this across multiple ER and urgent care visits. Across the span of a couple weeks he had been prescribed prednisone, ibuprofen, Toradol and had been taking these medications in addition to his [place] for pain control. He reports that he gets intermittent relief, but today he felt extremely nauseous, lightheaded, felt like he was going to faint and therefore came to the emergency room for further evaluation. He denies fevers, chills. He reports black stools. He denies dysuria. In the emergency room, patient was afebrile, 124/85, heart rate 86, 98% on room air. CBC is remarkable for anemia down to 10.7, which was 13.1 two weeks ago. Sodium is 135, potassium is 5.6, creatinine is 1.51 with a baseline of 0.7. Lipase is 158, amylase 44, liver function tests are unremarkable, lactic acid is 1.1. Urine appears colorless with a specific gravity of 1.047, otherwise unremarkable. FOBT is positive. Patient's EKG shows normal sinus rhythm with appropriate axis, intervals, no ST-T changes concerning for ischemia. Patient's abdomen/pelvis CT was remarkable for mild hydroureter of the left side with a 0.3 cm dilation and distal left ureteral stone. Case was discussed with the emergency room and decision was made to admit the patient for further evaluation of upper GI bleed, acute kidney injury, ureteral stone. All Systems reviewed and pertinent positives and negatives noted in HPI, all other symptoms are negative Gen: In NAD, non-toxic HEENT: normocephalic, atraumatic, hearing acuity is intant, mucous membranes moist CVS: perfusing all extremities well, no pitting edema, Respiratory: symmetric chest expansion, no accessory muscle use, GI: soft, NTTP, ND, : no suprapubic tenderness, no CVA tenderness MSK/Derm: no rashes, cyanosis Neuro: CN II-XII intact, no motor weakness, Psych: cooperative, euthymic mood, judgment and insight is intact Labs and imaging as above Assessment/plan: Acute blood loss anemia Upper GI bleed -Admit to inpatient, telemetry -Maintain large-bore IV access -Maintain active type and screen -CBC every 6 hours -Pantoprazole 80 mg IV once, then 40 mg IV twice daily -GI consult for EGD -Discontinue all NSAIDs -N.p.o. at midnight Acute kidney injury Left ureteral stone Hydroureteronephrosis -Pain control with Dilaudid as needed -Nausea control with Zofran as needed -IV fluids: Normal saline at 125 cc/h -Urology consult -Repeat UA -Repeat labs in the morning Patient is full code Chemical DVT prophylaxis is contraindicated Past Medical History Past Medical History: No Reported History Additional Past Medical History / Comment(s): kidney stone History of Any Multi-Drug Resistant Organisms: None Reported Past Surgical History: No Surgical Hx Reported Past Psychological History: No Psychological Hx Reported Smoking Status: Former smoker Past Alcohol Use History: Occasional Past Drug Use History: None Reported Medications and Allergies Home Medications Medication Instructions Recorded Confirmed Type HYDROcodone/APAP 5-325MG [[place] 1 tab PO Q6HR PRN 3 Days #12 tab 11/06/24 11/21/24 Rx 5-325] Ibuprofen [Motrin] 600 mg PO Q6H PRN 11/21/24 11/21/24 History Ketorolac [Toradol] 10 mg PO Q6HR PRN 11/21/24 11/21/24 History Tamsulosin [Flomax] 0.4 mg PO DAILY 11/21/24 11/21/24 History Allergies Allergy/AdvReac Type Severity Reaction Status Date / Time No Known Allergies Allergy Verified 11/21/24 13:50 Physical Exam Osteopathic Statement: *. No significant issues noted on an osteopathic structural exam other than those noted in the History and Physical/Consult. Vitals: Vital Signs Temp Pulse Resp BP Pulse Ox 11/21/24 10:02 98 F 86 20 124/85 98 Intake and Output 11/21/24 11/21/24 11/21/24 06:59 14:59 22:59 Other: Weight 94.347 kg 94.347 kg Results CBC & Chem 7: 11/21/24 10:24 11/21/24 10:24 Labs: Abnormal Lab Results - Last 24 Hours (Table) 11/21/24 11/21/24 11/21/24 Range/Units 10:24 10:24 10:24 RBC 3.41 L (4.30-5.90) m/uL Hgb 10.7 L (13.0-17.5) gm/dL Hct 30.8 L (39.0-53.0) % Sodium 135 L (137-145) mmol/L Potassium 5.6 H (3.5-5.1) mmol/L Creatinine 1.51 H (0.66-1.25) mg/dL Glucose 117 H (74-99) mg/dL Ur Specific [place] 1.047 H (1.001-1.035) Thrombosis Risk Factor Assmnt - Choose All That Apply Each Factor Represents 1 point: Age 41-60 years Thrombosis Risk Factor Assessment Total Risk Factor Score: 1 Thrombosis Risk Factor Assessment Level: Low Risk
[2024-11-21 20:18] LABS: HCT 28.3 % (39.0-53.0); HGB 9.5 gm/dL (13.0-17.5); MCH 31.2 pg (25.0-35.0); MCHC 33.6 g/dL (31.0-37.0); MCV 92.9 fL (80.0-100.0); Mean Platelet Volume 7.3; Platelet Count 315 k/uL (150-450); RBC 3.04 m/uL (4.30-5.90); RDW 13.6 % (11.5-15.5); WBC 9.2 k/uL (3.8-10.6)
[2024-11-21] MEDS: PANTOPRAZOLE 40 MG/10 ML VIAL IVP SCH (20:57)
[2024-11-22 01:22] LABS: HCT 26.7 % (39.0-53.0); HGB 8.7 gm/dL (13.0-17.5); MCH 30.1 pg (25.0-35.0); MCHC 32.7 g/dL (31.0-37.0); MCV 92.2 fL (80.0-100.0); Mean Platelet Volume 7.2; Platelet Count 288 k/uL (150-450); RBC 2.89 m/uL (4.30-5.90); RDW 13.5 % (11.5-15.5); WBC 7.8 k/uL (3.8-10.6)
[2024-11-22 06:22] LABS: Appearance,Urine Clear (Clear); Bilirubin,Urine Negative (Negative); Blood,Urine Negative (Negative); Color,Urine Colorless; Glucose,Urine (UA) Negative (Negative); Ketones,Urine Negative (Negative); Leukocyte Esterase,Urine Negative (Negative); Nitrite,Urine Negative (Negative); PH, Urine 5.5 (5.0-8.0); Protein,Urine Negative (Negative); Specific Gravity,Urine 1.019 (1.001-1.035); Urobilinogen,Urine <2.0 mg/dL (<2.0)
[2024-11-22 08:43] LABS: HCT 26.6 % (39.6-50.0); HGB 8.8 g/dL (13.0-17.0); MCH 30.9 pg (27.0-32.0); MCHC 33.1 g/dL (32.0-37.0); MCV 93.3 FL (80.0-97.0); Mean Platelet Volume 9.9 FL (9.5-12.2); NRBC Per 100 WBC 0 X 10*3/uL (0.00-0.01); Platelet Count 282 X 10*3/uL (140-440); RBC 2.85 X 10*6/uL (4.40-5.60); RDW 13.2 % (11.5-14.5); WBC 7.34 X 10*3/uL (4.50-10.00)
[2024-11-22] MEDS: TAMSULOSIN 0.4 MG CAP.ER.24H PO SCH (08:45)
[2024-11-22 08:47] LABS: BUN/Creat Ratio 8.12 Ratio (12.00-20.00); Calcium 8.4 mg/dL (8.7-10.3); Carbon Dioxide 25.8 mmol/L (21.6-31.8); Chloride 105 mmol/L (96-109); Glucose 110 mg/dL (70-110); Potassium 4.8 mmol/L (3.5-5.5); Sodium 136 mmol/L (135-145)
[2024-11-22] MEDS ORDERED: FAMOTIDINE 20 MG/2 ML VIAL IV SCH (09:00)
[2024-11-22 09:24] LABS: HCT 29.8 % (39.0-53.0); HGB 9.8 gm/dL (13.0-17.5); MCH 30.3 pg (25.0-35.0); MCHC 32.8 g/dL (31.0-37.0); MCV 92.5 fL (80.0-100.0); Mean Platelet Volume 7.3; Platelet Count 311 k/uL (150-450); RBC 3.23 m/uL (4.30-5.90); RDW 13.6 % (11.5-15.5); WBC 7.1 k/uL (3.8-10.6)
--- NOTE | 2024-11-22 11:44 | P.CONS ---
History of Present Illness - Reason for Consult Consult date: 11/22/24 Melena/upper abdominal pain Requesting physician: Emily Rivas - Chief Complaint Abdominal and back pain - History of Present Illness This is a pleasant 54-year-old male who presented to the emergency department with complaints of abdominal and back pain. Patient states that he has been having ongoing back pain which she has been seen in the emergency department and by his primary care physician. He had ureteral stone which was being followed. He was started on ibuprofen and Dauphin. Since being on the Dauphin for the last couple weeks duration patient has become constipated and going for as long as 6 days for bowel movement. He did have a bowel movement couple days ago which she stated was black. He has been also having some upper abdominal pain some nausea and a little bit of vomiting secondary to pain with no hematemesis or coffee- ground emesis. Patient was noted to have drop in his hemoglobin, has a positive occult stool and gastroenterology was consulted for melena with abdominal pain. Patient denies any previous history of peptic ulcer disease, no history of EGD or colonoscopy. States he does get heartburn and acid reflux at times and just takes [id number] Pepcid. He was taking Aleve once in a while and had been on ibuprofen secondary to the back pain but had stopped that recently. Trending his hemoglobin back in September of this year his hemoglobin was 15.2 with a repeat today of 9.8. He denies any anticoagulation use. Patient was admitted with acute kidney injury, he had a CT of the abdomen pelvis that reports a left ureteral stone. He is scheduled today to undergo cystoscopy with possible stent placement. Review of Systems REVIEW OF SYSTEMS: CARDIOPULMONARY: No chest pain or shortness of breath. Gastrointestinal: Abdominal pain. Nausea with episodes of emesis secondary to pain. No hematemesis, coffee-ground emesis. No rectal bleeding, patient reports black hard stool. GENITOURINARY: No dysuria or hematuria. MUSCULOSKELETAL: Reports normal range of motion. Back pain mostly lower CVA tenderness. SKIN: No rashes. No jaundice. ENDOCRINE: No chills, fevers. No excessive weight gain or loss. No polydipsia or polyuria. PSYCHIATRIC: Unremarkable. NEUROLOGY: No change in mental status. Denies dizziness, headache. ENT: Vision unremarkable. CONSTITUTIONAL: No recent weight loss. No fever, chills, night sweats. Past Medical History Past Medical History: No Reported History Additional Past Medical History / Comment(s): kidney stone History of Any Multi-Drug Resistant Organisms: None Reported Past Surgical History: No Surgical Hx Reported Past Psychological History: No Psychological Hx Reported Smoking Status: Former smoker Past Alcohol Use History: Occasional Past Drug Use History: None Reported Medications and Allergies Home Medications Medication Instructions Recorded Confirmed Type HYDROcodone/APAP 5-325MG [Dauphin 1 tab PO Q6HR PRN 3 Days #12 tab 11/06/24 11/21/24 Rx 5-325] Ibuprofen [Motrin] 600 mg PO Q6H PRN 11/21/24 11/21/24 History Ketorolac [Toradol] 10 mg PO Q6HR PRN 11/21/24 11/21/24 History Tamsulosin [Flomax] 0.4 mg PO DAILY 11/21/24 11/21/24 History Allergies Allergy/AdvReac Type Severity Reaction Status Date / Time No Known Allergies Allergy Verified 11/21/24 13:50 Physical Exam Vitals: Vital Signs Temp Pulse Pulse Resp BP BP Pulse Ox 11/22/24 07:00 98.5 F 80 16 125/75 94 L 11/22/24 02:01 98.7 F 95 15 117/73 94 L 11/21/24 19:28 98.3 F 88 15 164/79 97 11/21/24 18:00 98.9 F 92 19 174/92 96 11/21/24 10:02 98 F 86 20 124/85 98 Intake and Output 11/21/24 11/22/24 11/22/24 22:59 06:59 14:59 Other: # Voids 1 # Bowel Movements 0 Weight 94.347 kg General appearance: The patient is alert, oriented, appears in no acute distress. HET: Head is normocephalic and atraumatic. Conjunctiva pink. Sclera anicteric. Neck: Supple without lymphadenopathy. Trachea midline. Heart: Regular. Lungs: Equal expansion, normal respiratory effort. Abdomen: Soft, epigastric tenderness, nondistended. Back: Left CVA tenderness Skin: No rashes. No jaundice. Extremities: Normal skin color and turgor. No pedal edema. Neurological: No focal deficits. Alert and oriented x3. Results CBC & Chem 7: 11/22/24 09:09 11/22/24 04:31 Labs: Abnormal Lab Results - Last 24 Hours (Table) 11/21/24 11/21/24 11/21/24 Range/Units 10:24 10:24 10:24 RBC 3.41 L (4.30-5.90) m/uL Hgb 10.7 L (13.0-17.5) gm/dL Hct 30.8 L (39.0-53.0) % Sodium 135 L (137-145) mmol/L Potassium 5.6 H (3.5-5.1) mmol/L Creatinine 1.51 H (0.66-1.25) mg/dL Est GFR (CKD-EPI) (>=60) BUN/Creatinine Ratio (12.00-20.00) Ratio Glucose 117 H (74-99) mg/dL Calcium (8.7-10.3) mg/dL Ur Specific [place] 1.047 H (1.001-1.035) 11/21/24 11/22/24 11/22/24 Range/Units 19:35 00:42 04:31 RBC 3.04 L 2.89 L (4.30-5.90) m/uL Hgb 9.5 L 8.7 L (13.0-17.5) gm/dL Hct 28.3 L 26.7 L (39.0-53.0) % Sodium (137-145) mmol/L Potassium (3.5-5.1) mmol/L Creatinine 1.6 H (0.66-1.25) mg/dL Est GFR (CKD-EPI) 51 L (>=60) BUN/Creatinine Ratio 8.12 L (12.00-20.00) Ratio Glucose (74-99) mg/dL Calcium 8.4 L (8.7-10.3) mg/dL Ur Specific [place] (1.001-1.035) 11/22/24 Range/Units 04:31 RBC 2.85 L (4.30-5.90) m/uL Hgb 8.8 L (13.0-17.5) gm/dL Hct 26.6 L (39.0-53.0) % Sodium (137-145) mmol/L Potassium (3.5-5.1) mmol/L Creatinine (0.66-1.25) mg/dL Est GFR (CKD-EPI) (>=60) BUN/Creatinine Ratio (12.00-20.00) Ratio Glucose (74-99) mg/dL Calcium (8.7-10.3) mg/dL Ur Specific [place] (1.001-1.035) Comments: CT abdomen pelvis with contrast reports distal left ureteral stone measuring 0.3 cm with mild hydroureter and mild hydronephrosis Assessment and Plan (1) Melena Narrative/Plan: 54-year-old male presenting with upper abdominal pain as well as low back pain diagnosed with acute kidney injury and obstructive left ureteral stone. Patient has been using ibuprofen as well as opioids for pain control. He has become constipated for the last couple of weeks. He has noticed however when he was able to have a bowel movement after taking MiraLAX that his stool was black. No history of previous ulcer or GI bleed. No previous EGD or colonoscopy. Has been having some acid reflux and takes Pepcid at home. Has had a 6 g drop in his hemoglobin since the end of September. Need to consider possible upper GI bleed with evidence of black stool and positive occult stool. Patient also has not had a previous colonoscopy. Would recommend scheduling upper endoscopy as well as colonoscopy. Timing to be determined as patient is undergoing cystoscopy today. Current Visit: Yes Status: Acute Code(s): K92.1 - MELENA SNOMED Code(s): 7815292 (2) Anemia Current Visit: Yes Status: Acute Code(s): D64.9 - ANEMIA, UNSPECIFIED SNOMED Code(s): 866044457 (3) Opioid-induced constipation Current Visit: Yes Status: Acute Code(s): K59.03 - DRUG INDUCED CONSTIPATION; T40.2X5A - ADVERSE EFFECT OF OTHER OPIOIDS, INITIAL ENCOUNTER SNOMED Code(s): 56422274 (4) GHULAM (acute kidney injury) Current Visit: Yes Status: Acute Code(s): N17.9 - ACUTE KIDNEY FAILURE, UNSPECIFIED SNOMED Code(s): 80496886 (5) Abdominal pain Current Visit: Yes Status: Acute Code(s): R10.9 - UNSPECIFIED ABDOMINAL PAIN SNOMED Code(s): 45608907 (6) Calculus of ureter Current Visit: Yes Status: Acute Code(s): N20.1 - CALCULUS OF URETER SNOMED Code(s): 41219967 (7) Occult blood positive stool Current Visit: Yes Status: Acute Code(s): R19.5 - OTHER FECAL ABNORMALITIES SNOMED Code(s): 38144475 (8) Back pain Current Visit: No Status: Acute Code(s): M54.9 - DORSALGIA, UNSPECIFIED SNOMED Code(s): 910427546 Plan: 1. Continue symptomatic and supportive care 2. Protonix 40 mg twice daily 3. Antiemetics as needed 4. Patient may have clear liquid diet following cystoscopy if cleared by urology 5. Daily CBC, transfuse for hemoglobin less than 7 6. Avoid NSAIDs 7. Would recommend EGD and colonoscopy, timing to be determined. Possibly Friday 8. Continue with recommendations from urology Thank you for this consultation, we will continue to follow. Dr. Megan Cervantes I agree with the dictator's note, documented as a scribe by Shayy Leavitt.
--- NOTE | 2024-11-22 12:31 | P.PN ---
Subjective Progress Note Date: 11/22/24 No new commplaints today. Hgb downtrended, jw in 8.8 range. Seen by GI with plans to do endoscopy/colonoscopy. Seen by urology with plans to do cystoscopy. Gen: In NAD, non-toxic HEENT: normocephalic, atraumatic, hearing acuity is intant, mucous membranes moist CVS: perfusing all extremities well, no pitting edema, Respiratory: symmetric chest expansion, no accessory muscle use, GI: soft, NTTP, ND, : no suprapubic tenderness, no CVA tenderness MSK/Derm: no rashes, cyanosis Neuro: CN II-XII intact, no motor weakness, Psych: cooperative, euthymic mood, judgment and insight is intact Hospital Course: 54-year-old male with medical history of recent flu infection presenting for abdominal pain. In the emergency room, patient was afebrile, 124/85, heart rate 86, 98% on room air. CBC is remarkable for anemia down to 10.7, which was 13.1 two weeks ago. Sodium is 135, potassium is 5.6, creatinine is 1.51 with a baseline of 0.7. Lipase is 158, amylase 44, liver function tests are un remarkable, lactic acid is 1.1. Urine appears colorless with a specific gravity of 1.047, otherwise unremarkable. FOBT is positive. Patient's EKG shows normal sinus rhythm with appropriate axis, intervals, no ST-T changes concerning for ischemia. Patient's abdomen/pelvis CT was remarkable for mild hydroureter of the left side with a 0.3 cm dilation and distal left ureteral stone. Case was discussed with the emergency room and decision was made to admit the patient for further evaluation of upper GI bleed, acute kidney injury, ureteral stone. Assessment/plan: Acute blood loss anemia Upper GI bleed -Admit to inpatient, telemetry -Maintain large-bore IV access -Maintain active type and screen -CBC every 6 hours -Pantoprazole 80 mg IV once, then 40 mg IV twice daily -GI consult for EGD -Discontinue all NSAIDs -CLD after cystoscopy --> NPO at midnight Acute kidney injury Left ureteral stone Hydroureteronephrosis -Pain control with Dilaudid as needed -Nausea control with Zofran as needed -IV fluids: Normal saline at 125 cc/h -Urology consult -Repeat UA -Repeat labs in the morning Patient is full code Chemical DVT prophylaxis is contraindicated Objective - Vital Signs Vital signs: Vital Signs Temp 98.5 F 11/22/24 07:00 Pulse 80 11/22/24 07:00 Resp 16 11/22/24 07:00 BP 125/75 11/22/24 07:00 Pulse Ox 94 L 11/22/24 07:00 FiO2 Intake & Output 11/21/24 11/22/24 11/22/24 18:59 06:59 18:59 Weight 94.347 kg Other: # Voids 1 # Bowel Movements 0 - Labs CBC & Chem 7: 11/22/24 09:09 11/22/24 04:31 Labs: Abnormal Lab Results - Last 24 Hours (Table) 11/21/24 11/21/24 11/22/24 Range/Units 10:24 19:35 00:42 RBC 3.04 L 2.89 L (4.30-5.90) m/uL Hgb 9.5 L 8.7 L (13.0-17.5) gm/dL Hct 28.3 L 26.7 L (39.0-53.0) % Creatinine (0.6-1.5) mg/dL Est GFR (CKD-EPI) (>=60) BUN/Creatinine Ratio (12.00-20.00) Ratio Calcium (8.7-10.3) mg/dL Ur Specific [place] 1.047 H (1.001-1.035) 11/22/24 11/22/24 11/22/24 Range/Units 04:31 04:31 09:09 RBC 2.85 L 3.23 L (4.30-5.90) m/uL Hgb 8.8 L 9.8 L (13.0-17.5) gm/dL Hct 26.6 L 29.8 L (39.0-53.0) % Creatinine 1.6 H (0.6-1.5) mg/dL Est GFR (CKD-EPI) 51 L (>=60) BUN/Creatinine Ratio 8.12 L (12.00-20.00) Ratio Calcium 8.4 L (8.7-10.3) mg/dL Ur Specific [place] (1.001-1.035)
[2024-11-22] MEDS: IV FLUID CONTINUATION 1,000 ML IV ONE (16:11)
[2024-11-22] MEDS: ONDANSETRON 4 MG/2 ML VIAL IVP PRN (16:39)
[2024-11-22] MEDS: DEXAMETHASONE SOD PHOSPHATE 4 MG/ML 1 ML VIAL IVP STA (16:40)
--- NOTE | 2024-11-22 16:57 | P.GSCN ---
History of Present Illness Consult date: 11/22/24 Reason for Consult: Left renal colic Requesting physician: Ely Oliva History of present illness: The patient is a 54-year-old white male who reports a several week history of lower back and abdominal pain, which is times has been localized to the left flank. Initially, the patient thought that his pain was musculoskeletal in origin. However, when he failed to improve he was evaluated at [facility] and diagnosed with a left ureteral calculus. He presented yesterday with intractable pain and nausea and CT scan showed evidence of mild left hydroureteronephrosis due to a 3 mm left distal ureteral calculus. Review of Systems - Constitutional Denies chills, Denies fever - Gastrointestinal Reports abdominal pain, Reports constipation, Reports nausea - Genitourinary Reports flank pain, Reports kidney stones Past Medical History Past Medical History: No Reported History Additional Past Medical History / Comment(s): kidney stone History of Any Multi-Drug Resistant Organisms: None Reported Past Surgical History: No Surgical Hx Reported Past Psychological History: No Psychological Hx Reported Smoking Status: Former smoker Past Alcohol Use History: Occasional Past Drug Use History: None Reported Medications and Allergies Home Medications Medication Instructions Recorded Confirmed Type HYDROcodone/APAP 5-325MG [Anderson 1 tab PO Q6HR PRN 3 Days #12 tab 11/06/24 11/21/24 Rx 5-325] Ibuprofen [Motrin] 600 mg PO Q6H PRN 11/21/24 11/21/24 History Ketorolac [Toradol] 10 mg PO Q6HR PRN 11/21/24 11/21/24 History Tamsulosin [Flomax] 0.4 mg PO DAILY 11/21/24 11/21/24 History Allergies Allergy/AdvReac Type Severity Reaction Status Date / Time No Known Allergies Allergy Verified 11/21/24 13:50 Surgical - Exam Vital Signs Temp Pulse Resp BP Pulse Ox 98 F 86 20 124/85 98 11/21/24 10:02 11/21/24 10:02 11/21/24 10:02 11/21/24 10:02 11/21/24 10:02 - General well developed, well nourished, no distress - Respiratory normal respiratory effort - Psychiatric oriented to time, oriented to person, oriented to place, speech is normal, memory intact Results - Labs 11/22/24 09:09 11/22/24 04:31 Abnormal Lab Results - Last 24 Hours (Table) 11/21/24 11/21/24 11/21/24 Range/Units 10:24 10:24 10:24 RBC 3.41 L (4.30-5.90) m/uL Hgb 10.7 L (13.0-17.5) gm/dL Hct 30.8 L (39.0-53.0) % Sodium 135 L (137-145) mmol/L Potassium 5.6 H (3.5-5.1) mmol/L Creatinine 1.51 H (0.66-1.25) mg/dL Glucose 117 H (74-99) mg/dL Ur Specific [place] 1.047 H (1.001-1.035) 11/21/24 11/22/24 Range/Units 19:35 00:42 RBC 3.04 L 2.89 L (4.30-5.90) m/uL Hgb 9.5 L 8.7 L (13.0-17.5) gm/dL Hct 28.3 L 26.7 L (39.0-53.0) % Sodium (137-145) mmol/L Potassium (3.5-5.1) mmol/L Creatinine (0.66-1.25) mg/dL Glucose (74-99) mg/dL Ur Specific [place] (1.001-1.035) Diabetes panel 11/21/24 Range/Units 10:24 Sodium 135 L (137-145) mmol/L Potassium 5.6 H (3.5-5.1) mmol/L Chloride 99 (98-107) mmol/L Carbon Dioxide 26 (22-30) mmol/L BUN 19 (9-20) mg/dL Creatinine 1.51 H (0.66-1.25) mg/dL Glucose 117 H (74-99) mg/dL Calcium 9.3 (8.4-10.2) mg/dL AST 40 (17-59) U/L ALT 35 (4-49) U/L Alkaline Phosphatase 60 (38-126) U/L Total Protein 6.8 (6.3-8.2) g/dL Albumin 3.8 (3.5-5.0) g/dL Calcium panel 11/21/24 Range/Units 10:24 Calcium 9.3 (8.4-10.2) mg/dL Albumin 3.8 (3.5-5.0) g/dL Pituitary panel 11/21/24 Range/Units 10:24 Sodium 135 L (137-145) mmol/L Potassium 5.6 H (3.5-5.1) mmol/L Chloride 99 (98-107) mmol/L Carbon Dioxide 26 (22-30) mmol/L BUN 19 (9-20) mg/dL Creatinine 1.51 H (0.66-1.25) mg/dL Glucose 117 H (74-99) mg/dL Calcium 9.3 (8.4-10.2) mg/dL Adrenal panel 11/21/24 Range/Units 10:24 Sodium 135 L (137-145) mmol/L Potassium 5.6 H (3.5-5.1) mmol/L Chloride 99 (98-107) mmol/L Carbon Dioxide 26 (22-30) mmol/L BUN 19 (9-20) mg/dL Creatinine 1.51 H (0.66-1.25) mg/dL Glucose 117 H (74-99) mg/dL Calcium 9.3 (8.4-10.2) mg/dL Total Bilirubin 0.9 (0.2-1.3) mg/dL AST 40 (17-59) U/L ALT 35 (4-49) U/L Alkaline Phosphatase 60 (38-126) U/L Total Protein 6.8 (6.3-8.2) g/dL Albumin 3.8 (3.5-5.0) g/dL - Imaging CT scan - abdomen: report reviewed, image reviewed Assessment and Plan (1) Calculus of ureter Current Visit: Yes Status: Acute Code(s): N20.1 - CALCULUS OF URETER SNOM ED Code(s): 52856336 (2) Hydronephrosis with renal and ureteral calculous obstruction Current Visit: Yes Status: Acute Code(s): N13.2 - HYDRONEPHROSIS WITH RENAL AND URETERAL CALCULOUS OBSTRUCTION SNOMED Code(s): 978071539 Plan: I had a lengthy discussion with the patient regarding his left distal ureteral calculus. I explained to him that the calculus has a high likelihood of spontaneous passage. However, given the duration of his symptoms and the fact that he wishes to avoid future attacks, he has elected to undergo ureteroscopic removal of the calculus, which will be performed later today. The procedure has been reviewed in detail with the patient, including potential risks which include anesthesia, infection, inability to remove the calculus, and ureteral injury. He is aware of the possible need for a stent to be placed. Time with Patient: Greater than 30
[2024-11-22] MEDS ORDERED: LIDOCAINE 1% INJ 10MG/ML (20 ML MDV) ONE (17:28)
[2024-11-22] MEDS ORDERED: HYDROmorphone (PF) 1 MG/ML ONE (17:28)
[2024-11-22] MEDS ORDERED: MIDAZOLAM 2 MG/2 ML VIAL ONE (17:28)
[2024-11-22] MEDS ORDERED: PROPOFOL 10 MG/ML 20 ML VIAL IV ONE (17:28)
[2024-11-22] MEDS ORDERED: fentaNYL (PF) 50 MCG/ML 2 ML AMP ONE (17:28)
[2024-11-22] MEDS: SODIUM CHLORIDE 0.9% 50 ML with ceFAZolin 2,000 MG IV ONE (17:33)
[2024-11-22] MEDS: LACTATED RINGERS 1,000 ML IV ONE (17:56)
[2024-11-22] MEDS: IOPAMIDOL-370 100ML BTL MISCELLANE ONE (17:58)
--- NOTE | 2024-11-22 18:40 | P.OP ---
Date of Procedure: 11/22/24 Preoperative Diagnosis: Left ureteral calculus Postoperative Diagnosis: Left ureteral calculi Procedure(s) Performed: Cystoscopy, left retrograde pyelogram, left ureteroscopy with Holmium laser lithotripsy, left ureteral stent insertion Anesthesia: DAVIDA Surgeon: Javan Hancock Estimated Blood Loss (ml): 5 IV fluids (ml): 500 Pathology: other (Calculus fragments, sent for chemical analysis) Condition: stable Disposition: PACU Indications for Procedure: The patient is a 54-year-old white male who reports a several week history of lower back and abdominal pain, which is times has been localized to the left flank. Initially, the patient thought that his pain was musculoskeletal in origin. However, when he failed to improve he was evaluated at [facility] and diagnosed with a left ureteral calculus. He presented yesterday with intractable pain and nausea and CT scan showed evidence of mild left hydroureteronephrosis due to a 3 mm left distal ureteral calculus and has elected to undergo ureteroscopic removal of the calculus. Operative Findings: Left intramural ureteral narrowing. 3-4 small left distal ureteral calculi measuring up to 2-3 mm in size. Description of Procedure: The patient was taken to the operating room and placed in the dorsolithotomy position, with legs supported in Jude stirrups. The external genitalia was prepped and draped sterilely. The 30 lens was used to introduce the 21-Canadian Becerra cystoscopic sheath through the urethra and into the bladder under direct vision. The prostatic urethra showed evidence of mild lateral lobe enlargement. The bladder was examined in its entirety. Both ureteral orifices were normal anatomic location and configuration. No tumors or foreign bodies were seen. Using a 10 Canadian cone-tip catheter, a left retrograde pyelogram was performed. The intramural portion of the ureter appeared narrowed, and the calculus was seen proximal to this as a filling defect. The Becerra semirigid ureteroscope was advanced into the bladder, and the left ureteral orifice was cannulated. However, the ureteroscope could not be advanced through the intramural ureter. Therefore, a 0.035 inch Glidewire was passed through the ureteroscope. The left ureteral orifice was cannulated, and with significant difficulty the Glidewire was passed beyond the calculus and up to the left renal pelvis. The ureteroscope was removed, and the Glidewire was backloaded into the cystoscope, which was passed into the bladder. A 15 Canadian, 4 cm balloon dilating catheter was used to dilate the intramural portion of the ureter. As the balloon dil ating catheter was deflated, a "hydronephrotic omer" was noted as a significant amount of blood-tinged urine drained from the left ureter. The cystoscope was then removed, and ureteroscopy was repeated. Several small calculi were seen within the left distal ureter, measuring up to 3 mm in size. The 272 micron Holmium laser probe was passed through the ureteroscope, and lithotripsy was performed. Some of the smaller calculi simply passed into the bladder. Following lithotripsy, all calculus fragments passed distally into the bladder. Inspection of the ureter showed no evidence of ureteral trauma. The Glidewire was passed through the ureteroscope and up to the left renal pelvis. The ureteroscope was removed, and the Glidewire was backloaded into the cystoscope, which was passed into the bladder. A 26 cm, 4.8 Canadian double-J ureteral stent was placed over the wire. Proper stent positioning was verified fluoroscopically and endoscopically. The calculi were removed from the bladder and sent for chemical analysis. The bladder was emptied and the cystoscope removed. The patient tolerated the procedure well and was taken to the recovery room in stable condition. GULSHAN ROCKAlejandro Report: Procedure Acuity: Urgent Stone Size and Location: 3 mm, left distal ureter Ureteral Dilation: Balloon Dilation Ureteral Access Sheath Used: No Stone Sent for Analysis: Yes All Stones/Fragments Were Removed with a Basket: Yes Complications: No Preoperative Antibiotics Given: Yes Stent Placed: Yes If Stent Placed, Was String Left Attached: No If Stent Placed, When is it to be Removed: 2 weeks Discharge Medications: Tamsulosin, Toradol, [place]
--- NOTE | 2024-11-22 18:55 | FL ---
EXAMINATION TYPE: FL guidance operating room Intraoperative/procedural fluoroscopic services were pro vided. CLINICAL INDICATION:Male, 54 years old with history of CYSTO; , [facility] FINDINGS: Fluoroscopic images for left-sided lithotripsy is demonstrated. Suggest a left ureteral stent. No rad iographic evidence for complication. Total fluoroscopy time is 26.7 seconds. DAP: 5.3080 Gycm2 Please see the operative/procedural note for further details. [facility], , 11/22/2024 6:53 PM
[2024-11-22 20:23] LABS: HCT 30.5 % (39.0-53.0); HGB 9.5 gm/dL (13.0-17.5); Hypochromasia Slight; MCH 29.6 pg (25.0-35.0); MCHC 31.2 g/dL (31.0-37.0); MCV 94.8 fL (80.0-100.0); Mean Platelet Volume 7.6; Platelet Count 335 k/uL (150-450); RBC 3.22 m/uL (4.30-5.90); RDW 13.1 % (11.5-15.5); WBC 10.7 k/uL (3.8-10.6)
[2024-11-23 01:23] LABS: HCT 28.3 % (39.0-53.0); HGB 8.9 gm/dL (13.0-17.5); MCH 28.9 pg (25.0-35.0); MCHC 31.3 g/dL (31.0-37.0); MCV 92.6 fL (80.0-100.0); Mean Platelet Volume 7.3; Platelet Count 324 k/uL (150-450); RBC 3.06 m/uL (4.30-5.90); RDW 13.5 % (11.5-15.5)
[2024-11-23 08:34] LABS: BUN/Creat Ratio 7.71 Ratio (12.00-20.00); Blood Urea Nitrogen 10.8 mg/dL (9.0-27.0); Calcium 8.6 mg/dL (8.7-10.3); Carbon Dioxide 23.2 mmol/L (21.6-31.8); Chloride 104 mmol/L (96-109); Glucose 116 mg/dL (70-110); Sodium 137 mmol/L (135-145)
[2024-11-23 09:03] LABS: Basophils # (A) 0.02 X 10*3/uL (0.00-0.10); Basophils % (A) 0.3 %; Eosinophils # (A) 0.01 X 10*3/uL (0.04-0.35); Eosinophils % (A) 0.2 %; HCT 25.6 % (39.6-50.0); HGB 8.6 g/dL (13.0-17.0); Lymphocytes # (A) 0.72 X 10*3/uL (0.90-5.00); Lymphocytes % (A) 11.7 %; MCH 30.9 pg (27.0-32.0); MCHC 33.6 g/dL (32.0-37.0); MCV 92.1 FL (80.0-97.0); Mean Platelet Volume 10.2 FL (9.5-12.2); Monocytes # (A) 0.43 X 10*3/uL (0.20-1.00); NRBC Per 100 WBC 0 X 10*3/uL (0.00-0.01); Neutrophils # (A) 4.97 X 10*3/uL (1.80-7.70); Neutrophils % (A) 80.5 %; Platelet Count 321 X 10*3/uL (140-440); RBC 2.78 X 10*6/uL (4.40-5.60); RDW 13.1 % (11.5-14.5); WBC 6.17 X 10*3/uL (4.50-10.00)
--- NOTE | 2024-11-23 09:35 | P.PN ---
Subjective Progress Note Date: 11/23/24 Principal diagnosis: Left ureteral stone Underwent left-sided ureteroscopy with holmium laser yesterday. Is having minimal flank pain at this point. Does complain of gross hematuria. Objective - Vital Signs Vital signs: Vital Signs Temp 98.4 F 11/23/24 07:10 Pulse 79 11/23/24 07:10 Resp 16 11/23/24 07:10 BP 116/75 11/23/24 07:10 Pulse Ox 98 11/23/24 07:10 FiO2 Intake & Output 11/22/24 11/23/24 11/23/24 18:59 06:59 18:59 Intake Total 950 Output Total 5 250 Balance 945 -250 Weight 94.347 kg Intake: IV 950 Output: Urine 250 Estimated Blood Loss 5 Other: # Voids 3 4 - Constitutional General appearance: Present: no acute distress - Gastrointestinal General gastrointestinal: Absent: distended, tenderness - Psychiatric Psychiatric: Present: A&O x's 3 - Labs CBC & Chem 7: 11/23/24 05:43 11/23/24 05:43 Labs: Abnormal Lab Results - Last 24 Hours (Table) 11/22/24 11/23/24 11/23/24 Range/Units 20:06 01:01 05:43 WBC 10.7 H (3.8-10.6) k/uL RBC 3.22 L 3.06 L 2.78 L (4.30-5.90) m/uL Hgb 9.5 L 8.9 L 8.6 L (13.0-17.5) gm/dL Hct 30.5 L 28.3 L 25.6 L (39.0-53.0) % Lymphocytes # 0.72 L (0.90-5.00) X 10*3/uL Eosinophils # 0.01 L (0.04-0.35) X 10*3/uL Est GFR (CKD-EPI) (>=60) BUN/Creatinine Ratio (12.00-20.00) Ratio Glucose (70-110) mg/dL Calcium (8.7-10.3) mg/dL 11/23/24 Range/Units 05:43 WBC (3.8-10.6) k/uL RBC (4.30-5.90) m/uL Hgb (13.0-17.5) gm/dL Hct (39.0-53.0) % Lymphocytes # (0.90-5.00) X 10*3/uL Eosinophils # (0.04-0.35) X 10*3/uL Est GFR (CKD-EPI) 59 L (>=60) BUN/Creatinine Ratio 7.71 L (12.00-20.00) Ratio Glucose 116 H (70-110) mg/dL Calcium 8.6 L (8.7-10.3) mg/dL Assessment and Plan Assessment: 54-year-old male status post left-sided ureteroscopy with holmium laser for left ureteral stone. Discussed with him gross hematuria is normal post ureteroscopy and stent insertion. From urology standpoint he is okay for discharge. He will need to follow-up with Dr. Hancock in 2 weeks for cystoscopy stent removal
--- NOTE | 2024-11-23 10:37 | P.PN ---
Subjective Progress Note Date: 11/23/24 No new commplaints today. s/p stone removal yesterday, reports significant improvement of back pain. Gen: In NAD, non-toxic HEENT: normocephalic, atraumatic, hearing acuity is intant, mucous membranes mo ist CVS: perfusing all extremities well, no pitting edema, Respiratory: symmetric chest expansion, no accessory muscle use, GI: soft, NTTP, ND, : no suprapubic tenderness, no CVA tenderness MSK/Derm: no rashes, cyanosis Neuro: CN II-XII intact, no motor weakness, Psych: cooperative, euthymic mood, judgment and insight is intact Hospital Course: 54-year-old male with medical history of recent flu infection presenting for abdominal pain. In the emergency room, patient was afebrile, 124/85, heart rate 86, 98% on room air. CBC is remarkable for anemia down to 10.7, which was 13.1 two weeks ago. Sodium is 135, potassium is 5.6, creatinine is 1.51 with a baseline of 0.7. Lipase is 158, amylase 44, liver function tests are unremarkable, lactic acid is 1.1. Urine appears colorless with a specific gravity of 1.047, otherwise unremarkable. FOBT is positive. Patient's EKG shows normal sinus rhythm with appropriate axis, intervals, no ST-T changes concerning for ischemia. Patient's abdomen/pelvis CT was remarkable for mild hydroureter of the left side with a 0.3 cm dilation and distal left ureteral stone. Case was discussed with the emergency room and decision was made to admi t the patient for further evaluation of upper GI bleed, acute kidney injury, ureteral stone. Assessment/plan: Acute blood loss anemia Upper GI bleed -Admit to inpatient, telemetry -Maintain large-bore IV access -Maintain active type and screen -CBC every 6 hours -Pantoprazole 80 mg IV once, then 40 mg IV twice daily -GI consult for EGD/[place] -Discontinue all NSAIDs -CLD with prep today, plan for EGD/[place] tomorrow Acute kidney injury Left ureteral stone Hydroureteronephrosis -Pain control with Dilaudid as needed -Nausea control with Zofran as needed -IV fluids: Normal saline at 125 cc/h -Urology consult -s/p stone removal on 11/22 with significant improvmeent of pain -Repeat labs in the morning Patient is full code Chemical DVT prophylaxis is contraindicated Objective - Vital Signs Vital signs: Vital Signs Temp 98.4 F 11/23/24 07:10 Pulse 79 11/23/24 07:10 Resp 16 11/23/24 07:10 BP 116/75 11/23/24 07:10 Pulse Ox 98 11/23/24 07:10 FiO2 Intake & Output 11/22/24 11/23/24 11/23/24 18:59 06:59 18:59 Intake Total 950 Output Total 5 250 Balance 945 -250 Weight 94.347 kg Intake: IV 950 Output: Urine 250 Estimated Blood Loss 5 Other: # Voids 3 4 - Labs CBC & Chem 7: 11/23/24 05:43 11/23/24 05:43 Labs: Abnormal Lab Results - Last 24 Hours (Table) 11/22/24 11/23/24 11/23/24 Range/Units 20:06 01:01 05:43 WBC 10.7 H (3.8-10.6) k/uL RBC 3.22 L 3.06 L 2.78 L (4.30-5.90) m/uL Hgb 9.5 L 8.9 L 8.6 L (13.0-17.5) gm/dL Hct 30.5 L 28.3 L 25.6 L (39.0-53.0) % Lymphocytes # 0.72 L (0.90-5.00) X 10*3/uL Eosinophils # 0.01 L (0.04-0.35) X 10*3/uL Est GFR (CKD-EPI) (>=60) BUN/Creatinine Ratio (12.00-20.00) Ratio Glucose (70-110) mg/dL Calcium (8.7-10.3) mg/dL 11/23/24 Range/Units 05:43 WBC (3.8-10.6) k/uL RBC (4.30-5.90) m/uL Hgb (13.0-17.5) gm/dL Hct (39.0-53.0) % Lymphocytes # (0.90-5.00) X 10*3/uL Eosinophils # (0.04-0.35) X 10*3/uL Est GFR (CKD-EPI) 59 L (>=60) BUN/Creatinine Ratio 7.71 L (12.00-20.00) Ratio Glucose 116 H (70-110) mg/dL Calcium 8.6 L (8.7-10.3) mg/dL
--- NOTE | 2024-11-23 15:16 | P.PN ---
Subjective Progress Note Date: 11/23/24 Principal diagnosis: Melena, anemia This a pleasant 72-year-old male who presented to the emergency department after being seen twice at the emergency department in [facility]. Patient has been having nausea and vomiting for the last 5 to 6 days duration. He has not been able to keep any food and minimal fluids down. Patient is poor historian however was able to obtain patient's history from his primary medical physician. He has a past medical history of atrial fibrillation warfarin, liver cirrhosis, pulmonary nodule, daily alcohol abuse for many years as well as nicotine dependence. He denies any hematemesis, nonbilious emesis. States he has been afebrile. Denies any diarrhea or abdominal pain. He has not had any vomiting since he has been admitted to the hospital. He had a CT of the abdomen pelvis as part of his workup with findings of multiple liver lesions gastric wall thickening and had elevated LFTs. Gastroenterology was consulted for nausea and vomiting with liver lesions. Patient denies any previous history of upper endoscopy or colonoscopy. Denies any history of peptic ulcer disease, denies any acid reflux. He is unsure if he has had any weight loss. Apparently patient drinks about a case of beer a day and drinks at least 4 to 5 days a week. Reportedly he has not drink any alcohol in about a week to 2 weeks. 11/23/2024 Patient seen and examined today as a follow-up. Yesterday he underwent cystoscopy with lithotripsy and left ureteral stent placement. Today he states he has no abdominal pain. No nausea or vomiting. He has not had any bowel movement since he has been here. Hemoglobin 8.6 hematocrit 25 platelet count 3 21,000 Objective - Vital Signs Vital signs: Vital Signs Temp 98.4 F 11/23/24 07:10 Pulse 79 11/23/24 07:10 Resp 16 11/23/24 07:10 BP 116/75 11/23/24 07:10 Pulse Ox 98 11/23/24 07:10 FiO2 Intake & Output 11/22/24 11/23/24 11/23/24 18:59 06:59 18:59 Intake Total 950 Output Total 5 250 Balance 945 -250 Weight 94.347 kg Intake: IV 950 Output: Urine 250 Estimated Blood Loss 5 Other: # Voids 3 4 - Exam General appearance: The patient is alert, oriented, appears in no acute distress. HET: Head is normocephalic and atraumatic. Conjunctiva pink. Sclera anicteric. Neck: Supple without lymphadenopathy. Abdomen: Soft, nontender, nondistended. Extremities: Normal skin color and turgor. No pedal edema Skin: No rashes, no jaundice Neurological: No focal deficits. Alert and oriented. - Labs CBC & Chem 7: 11/23/24 05:43 11/23/24 05:43 Labs: Abnormal Lab Results - Last 24 Hours (Table) 11/22/24 11/23/24 11/23/24 Range/Units 20:06 01:01 05:43 WBC 10.7 H (3.8-10.6) k/uL RBC 3.22 L 3.06 L 2.78 L (4.30-5.90) m/uL Hgb 9.5 L 8.9 L 8.6 L (13.0-17.5) gm/dL Hct 30.5 L 28.3 L 25.6 L (39.0-53.0) % Lymphocytes # 0.72 L (0.90-5.00) X 10*3/uL Eosinophils # 0.01 L (0.04-0.35) X 10*3/uL Est GFR (CKD-EPI) (>=60) BUN/Creatinine Ratio (12.00-20.00) Ratio Glucose (70-110) mg/dL Calcium (8.7-10.3) mg/dL 11/23/24 Range/Units 05:43 WBC (3.8-10.6) k/uL RBC (4.30-5.90) m/uL Hgb (13.0-17.5) gm/dL Hct (39.0-53.0) % Lymphocytes # (0.90-5.00) X 10*3/uL Eosinophils # (0.04-0.35) X 10*3/uL Est GFR (CKD-EPI) 59 L (>=60) BUN/Creatinine Ratio 7.71 L (12.00-20.00) Ratio Glucose 116 H (70-110) mg/dL Calcium 8.6 L (8.7-10.3) mg/dL Assessment and Plan (1) Melena Narrative/Plan: 54-year-old male presenting with upper abdominal pain as well as low back pain d iagnosed with acute kidney injury and obstructive left ureteral stone. Patient has been using ibuprofen as well as opioids for pain control. He has become constipated for the last couple of weeks. He has noticed however when he was able to have a bowel movement after taking MiraLAX that his stool was black. No history of previous ulcer or GI bleed. No previous EGD or colonoscopy. Has been having some acid reflux and takes Pepcid at home. Has had a 6 g drop in his hemoglobin since the end of September. Need to consider possible upper GI bleed with evidence of black stool and positive occult stool. Patient also has not had a previous colonoscopy. Patient is status post cystoscopy, left lithotripsy and stent placement. No bowel movement no rectal bleeding. However patient would like to proceed with upper endoscopy and colonoscopy to evaluate for possible GI source for anemia and melena. This will be scheduled for tomorrow. Current Visit: Yes Status: Acute Code(s): K92.1 - MELENA SNOMED Code(s): 2134248 (2) Anemia Current Visit: Yes Status: Acute Code(s): D64.9 - ANEMIA, UNSPECIFIED SNOMED Code(s): 951741797 (3) Opioid-induced constipation Current Visit: Yes Status: Acute Code(s): K59.03 - DRUG INDUCED CONSTIPATION; T40.2X5A - ADVERSE EFFECT OF OTHER OPIOIDS, INITIAL ENCOUNTER SNOMED Code(s): 20691419 (4) GHULAM (acute kidney injury) Narrative/Plan: Resolved Current Visit: Yes Status: Acute Code(s): N17.9 - ACUTE KIDNEY FAILURE, UNSPECIFIED SNOMED Code(s): 85000115 (5) Abdominal pain Current Visit: Yes Status: Acute Code(s): R10.9 - UNSPECIFIED ABDOMINAL PAIN SNOMED Code(s): 69829153 (6) Calculus of ureter Current Visit: Yes Status: Acute Code(s): N20.1 - CALCULUS OF URETER SNOMED Code(s): 22741903 (7) Occult blood positive stool Current Visit: Yes Status: Acute Code(s): R19.5 - OTHER FECAL ABNORMALITIES SNOMED Code(s): 95714641 (8) Back pain Current Visit: No Status: Acute Code(s): M54.9 - DORSALGIA, UNSPECIFIED SNOMED Code(s): 196945765 Plan: 1. Continue symptomatic and supportive care 2. Protonix 40 mg twice daily 3. Antiemetics as needed 4. Clear liquid diet, n.p.o. after midnight 5. Daily CBC, transfuse for hemoglobin less than 7 6. Avoid NSAIDs 7. Patient would like to proceed with upper endoscopy and colonoscopy during this hospitalization. Will plan for EGD and colonoscopy tomorrow 8. Bowel prep this evening 9. Continue with recommendations from urology Thank you for this consultation, we will continue to follow. Dr. Megan Cervantes I agree with the dictator's note, documented as a scribe by Shayy Leavitt.
[2024-11-23] MEDS: PEG 3350 (236 GM/BTL) + LYTES 4,000 ML BOTTLE PO ONE (18:07)
[2024-11-24 08:38] LABS: Basophils # (A) 0.05 X 10*3/uL (0.00-0.10); Eosinophils # (A) 0.29 X 10*3/uL (0.04-0.35); Eosinophils % (A) 5.9 %; HCT 24.6 % (39.6-50.0); HGB 8.1 g/dL (13.0-17.0); Lymphocytes # (A) 1.74 X 10*3/uL (0.90-5.00); Lymphocytes % (A) 35.2 %; MCH 30.1 pg (27.0-32.0); MCHC 32.9 g/dL (32.0-37.0); MCV 91.4 FL (80.0-97.0); Mean Platelet Volume 9.8 FL (9.5-12.2); Monocytes # (A) 0.48 X 10*3/uL (0.20-1.00); Monocytes % (A) 9.7 %; NRBC Per 100 WBC 0 X 10*3/uL (0.00-0.01); Neutrophils # (A) 2.38 X 10*3/uL (1.80-7.70); Platelet Count 325 X 10*3/uL (140-440); RBC 2.69 X 10*6/uL (4.40-5.60); RDW 13.3 % (11.5-14.5); WBC 4.95 X 10*3/uL (4.50-10.00)
[2024-11-24 08:57] LABS: BUN/Creat Ratio 7.92 Ratio (12.00-20.00); Blood Urea Nitrogen 9.5 mg/dL (9.0-27.0); Calcium 8.5 mg/dL (8.7-10.3); Carbon Dioxide 25.7 mmol/L (21.6-31.8); Chloride 105 mmol/L (96-109); Glucose 91 mg/dL (70-110); Magnesium 1.9 mg/dL (1.5-2.4); Potassium 3.9 mmol/L (3.5-5.5); Sodium 140 mmol/L (135-145)
--- NOTE | 2024-11-24 12:31 | P.PN ---
Subjective Underwent left-sided ureteroscopy with holmium laser 11/22. Denies any discomfort from the stent, denies any flank pain at this time. He is awaiting colonoscopy Objective - Vital Signs Vital signs: Vital Signs Temp 97.8 F 11/24/24 07:00 Pulse 73 11/24/24 07:00 Resp 16 11/24/24 07:00 BP 110/67 11/24/24 07:00 Pulse Ox 96 11/24/24 07:00 FiO2 Intake & Output 11/23/24 11/24/24 11/24/24 18:59 06:59 18:59 Other: Voiding Method Toilet Toilet # Voids 3 3 # Bowel Movements 3 - Constitutional General appearance: Present: no acute distress - Gastrointestinal General gastrointestinal: Absent: distended, tenderness - Psychiatric Psychiatric: Present: A&O x's 3 - Labs CBC & Chem 7: 11/24/24 06:00 11/24/24 06:00 Labs: Abnormal Lab Results - Last 24 Hours (Table) 11/24/24 11/24/24 Range/Units 06:00 06:00 RBC 2.69 L (4.40-5.60) X 10*6/uL Hgb 8.1 L (13.0-17.0) g/dL Hct 24.6 L (39.6-50.0) % BUN/Creatinine Ratio 7.92 L (12.00-20.00) Ratio Calcium 8.5 L (8.7-10.3) mg/dL Assessment and Plan Assessment: 54-year-old male status post left-sided ureteroscopy with holmium laser for left ureteral stone. . From urology standpoint he is okay for discharge. He will need to follow-up with Dr. Hancock in 2 weeks for cystoscopy stent removal
[2024-11-24] MEDS ORDERED: LIDOCAINE 1% INJ 10MG/ML (20 ML MDV) ONE (13:31)
[2024-11-24] MEDS ORDERED: PROPOFOL 10 MG/ML 20 ML VIAL IV ONE (13:31)
[2024-11-24] MEDS: SODIUM CHLORIDE 0.9% 500 ML 500 ML IV ONE (13:35)
--- NOTE | 2024-11-24 13:53 | P.PCN ---
Date of Procedure: 11/24/24 Procedure(s) Performed: Brief history: Patient is a pleasant 54-year-old white male scheduled for an elective upper endoscopy as well as colonoscopy as a part of evaluation of abdominal pain, intermittent nausea vomiting and change in bowel habits for the last 3 months duration Procedure performed: Esophagogastroduodenoscopy with biopsy Colonoscopy with biopsy Preoperative diagnosis: Epigastric pain/intermittent nausea vomiting Change in bowel habits Anesthesia: MAC Procedure: After informed consent was obtained from the patient was brought into the endoscopy unit and IV sedation was administered by anesthesia under continuous monitoring. Initially upper endoscopy was done. The Olympus GF 160 video endoscope was inserted inserted into the mouth and esophagus intubated without any difficulty and was gradually advanced into the stomach and duodenum and carefully examined. The bulb of the duodenum had a 2 cm clean-based ulcer with no bleeding. The second part of the duodenum appeared normal. The scope was then withdrawn into the stomach adequately insufflated with air and upon careful examination the antrum and mild gastritis and biopsies were done from this area. Mucosa of the body, cardia and fundus appeared normal. The scope was then withdrawn into the esophagus. The GE junction was located at 40 cm to the incisors. Mild hiatal hernia noted. There were 2 superficial erosions and a short segment Boyce's esophagus extending 3 mm proximal to the GE junction that was biopsied.. Rest of the esophagus appeared normal. Patient tolerated the procedure well. At this time the patient continued to remain sedation. Initial digital rectal examination was normal. Olympus CF 160 video colonoscope was then inserted into the rectum and gradually advanced to the cecum without any difficulty. Careful examination was performed as the scope was gradually being withdrawn. The prep was excellent. The cecum, ascending colon, transverse colon, descending colon, sigmoid colon and rectum appeared normal. Retroflexion was performed in the rectum and no lesions were noted. Patient tolerated the procedure well. Impression: 1. Upper endoscopy revealed 2 cm clean-based duodenal bulb ulcer, mild antral gastritis, small hiatal hernia and LA grade B reflux esophagitis 2. Colonoscopy revealed a 2 mm ascending colon polyp status post cold biopsy and the rest of the colon appeared normal Recommendations: Findings of this examination were discussed with the patient as well as his family. He was advised to follow with the biopsy results. Continue with Protonix 40 mg twice daily and avoid NSAIDs. Recommended repeat colonoscopy in 10 years.
--- NOTE | 2024-11-24 14:29 | P.DS ---
Providers Date of admission: 11/21/24 14:58 Attending physician: Ely Oliva MD Consults: 11/21/24 12:58 Consult Physician Urgent Consulting Provider: Kassandra Cervantes Consult Reason/Comments: melena/upper abd pain Do you want consulting provider notified?: Yes, Notify in am 11/21/24 16:12 Consult Physician Routine Consulting Provider: Javan Hancock Consult Reason/Comments: GHULAM ureteral stone Do you want consulting provider notified?: Yes Primary care physician: Stated None Hospital Course: Discharge Diagnosis: Duodenal ulcer Mild antral gastritis Small hiatal hernia LA grade B reflux esophagitis Colonic polyp status post cold biopsy Acute blood loss anemia GHULAM, resolved Left ureteral stone Hydroureteronephrosis Hospital Course: 54-year-old male with medical history of recent flu infection presenting for abdominal pain. In the emergency room, patient was afebrile, 124/85, heart rate 86, 98% on room air. CBC is remarkable for anemia down to 10.7, which was 13.1 two weeks ago. Sodium is 135, potassium is 5.6, creatinine is 1.51 with a baseline of 0.7. Lipase is 158, amylase 44, liver function tests are unremarkable, lactic acid is 1.1. Urine appears colorless with a specific gravity of 1.047, otherwise unremarkable. FOBT is positive. Patient's EKG shows normal sinus rhythm with appropriate axis, intervals, no ST-T changes concerning for ischemia. Patient's abdomen/pelvis CT was remarkable for mild hydroureter of the left side with a 0.3 cm dilation and distal left ureteral stone. Case was discussed with the emergency room and decision was made to admi t the patient for further evaluation of upper GI bleed, acute kidney injury, ureteral stone. Urology consulted, he was taken for left-sided ureteroscopy with holmium laser 11/22. Tolerated procedure well, will need to follow-up in 2 weeks for cystoscopy and stent removal. EGD and colonoscopy done on 11/24,Upper endoscopy revealed 2 cm clean-based duodenal bulb ulcer, mild antral gastritis, small hiatal hernia and LA grade B reflux esophagitis, Colonoscopy revealed a 2 mm ascending colon polyp status post cold biopsy and the rest of the colon appeared normal. Hemoglobin remained stable, he was cleared for discharge by neurology GI, patient will follow-up with GI for biopsy results, continued on Protonix 40 twice daily, recommended to avoid NSAIDs repeat colonoscopy in 10 years Patient seen and examined at bedside, no active complaints, denied abdominal pain, urination issues, shortness of breath, chest pain Vital signs reviewed and stable. General: [nontoxic], [no distress], [appears at stated age] Derm: [warm], [dry] Head: [atraumatic], [normocephalic], [symmetric] Eyes: [EOMI], [no lid lag], [anicteric sclera] Mouth: [no lip lesion], [mucus membranes moist] Cardiovascular: [S1S2 reg], [no murmur] Lungs: [CTA bilateral], [no rhonchi, no rales] , [no accessory muscle use] Abdominal: [soft], [ nontender to palpation], [no guarding], [no appreciable organomegaly] Ext: [no gross muscle atrophy], [no edema], [no contractures] Neuro: [ CN II-XI grossly intact], [no focal neuro deficits] Psych: [Alert], [oriented], [appropriate affect] A total of 40 minutes of time were spent preparing this complex discharge summary. Patient was discharged on 11/24. Patient Condition at Discharge: Stable Plan - Discharge Summary Discharge Rx Participant: Yes New Discharge Prescriptions: New Pantoprazole [Protonix] 40 mg PO BID #120 tab Continue HYDROcodone/APAP 5-325MG [[place] 5-325] 1 tab PO Q6HR PRN 3 Days #12 tab PRN Reason: Pain Tamsulosin [Flomax] 0.4 mg PO DAILY Discontinued Ibuprofen [Motrin] 600 mg PO Q6H PRN PRN Reason: Pain Or Fever > 100.5 Ketorolac [Toradol] 10 mg PO Q6HR PRN PRN Reason: Pain Discharge Medication List HYDROcodone/APAP 5-325MG [[place] 5-325] 1 tab PO Q6HR PRN 3 Days #12 tab 11/06/24 [Rx] Tamsulosin [Flomax] 0.4 mg PO DAILY 11/21/24 [History] Pantoprazole [Protonix] 40 mg PO BID #120 tab 11/24/24 [Rx] Follow up Appointment(s)/Referral(s): Javan Hancock MD [STAFF PHYSICIAN] - 2 Weeks (Cystoscopy and stent removal) Kassandra Cervantes MD [STAFF PHYSICIAN] - 1 Week None,Stated [Primary Care Provider] - 1-2 days Patient Instructions/Handouts: Peptic Ulcer (DC) Activity/Diet/Wound Care/Special Instructions: Please, follow up with your PCP, urology as scheduled. Discharge/Stand Alone Forms: Area PCPs Discharge Disposition: HOME SELF-CARE
[2024-11-24 15:28] VITALS: RESP 18; TEMP 97.9
[2024-11-24 15:29] VITALS: BP 118/76; PULSE 90
--- NOTE | 2024-11-29 16:59 | CDI ---
Documentation Clarification Form Date: 11/29/2024 From: Charles Pina Admit Date: 11/21/2024 02:58:00 PM Patient Name: Los Hernandez Visit Number: [id number] Discharge Date: 11/24/2024 03:26:00 PM ATTENTION: The Clinical Documentation Specialists (CDI) and [facility] Coding Staff appreciate your assistance in clarifying documentation. Please respond to the clarification below the line at the bottom and electronically sign. The CDI & [facility] Coding staff will review the response and follow-up if needed. Please note: Queries are made part of the Legal Health Record. If you have any questions, please contact the author of this message via ITS. Dr. Billy MD: There is documentation of mild antral gastritis. Additional clarification is requested regarding this diagnosis. History/Risk Factors: 54-year-old male with medical history of recent flu infection presenting for abdominal pain. Across the span of a couple weeks he had been prescribed prednisone, ibuprofen, Toradol and had been taking these medications in addition to his [place] for pain control. He reports that he gets intermittent relief, but today he felt extremely nauseous, lightheaded, felt like he was going to faint and therefore came to the emergency room for further evaluation. Clinical Indicators: 11/21 H&P: Acute blood loss anemia, Upper GI bleed CBC is remarkable for anemia down to 10.7, which was 13.1 two weeks ago. - FOBT is positive. CBC every 6 hours, -Pantoprazole 80 mg IV once, then 40 mg IV twice daily, -GI consult for EGD, -Discontinue all NSAIDs 11/24 Procedure note: Upper endoscopy revealed 2 cm clean-based duodenal bulb ulcer, mild antral gastritis, small hiatal hernia and LA grade B reflux esophagitis: The scope was then withdrawn into the stomach adequately insufflated with air and upon careful examination the antrum and mild gastritis and biopsies were done from this area. Mucosa of the body, cardia and fundus appeared normal. The scope was then withdrawn into the esophagus. Treatment: Protonix, GI consult, EGD, Discontinue NSAIDS, CBC Q6 hours. Can you please further clarify the documented Gastritis? [ ] Acute Gastritis with bleeding [ ] Acute Gastritis without bleeding [ ] Other, please specify [ ] Unable to determine (Template Last Revised: November 2020) MTDD
--- NOTE | 2024-12-07 12:24 | CDI ---
Documentation Clarification Form Date: 12/07/2024 From: Charles Pina Admit Date: 11/21/2024 02:58:00 PM Patient Name: Los Hernandez Visit Number: [id number] Discharge Date: 11/24/2024 03:26:00 PM ATTENTION: The Clinical Documentation Specialists (CDI) and [facility] Coding Staff appreciate your assistance in clarifying documentation. Please respond to the clarification below the line at the bottom and electronically sign. The CDI & [facility] Coding staff will review the response and follow-up if needed. Please note: Queries are made part of the Legal Health Record. If you have any questions, please contact the author of this message via ITS. Dr. Billy MD: There is documentation of mild antral gastritis. Additional clarification is requested regarding this diagnosis. History/Risk Factors: 54-year-old male with medical history of recent flu infection presenting for abdominal pain. Across the span of a couple weeks he had been prescribed prednisone, ibuprofen, Toradol and had been taking these medications in addition to his [place] for pain control. He reports that he gets intermittent relief, but today he felt extremely nauseous, lightheaded, felt like he was going to faint and therefore came to the emergency room for further evaluation. Clinical Indicators: 11/21 H&P: Acute blood loss anemia, Upper GI bleed CBC is remarkable for anemia down to 10.7, which was 13.1 two weeks ago. - FOBT is positive. CBC every 6 hours, -Pantoprazole 80 mg IV once, then 40 mg IV twice daily, -GI consult for EGD, -Discontinue all NSAIDs 11/24 Procedure note: Upper endoscopy revealed 2 cm clean-based duodenal bulb ulcer, mild antral gastritis, small hiatal hernia and LA grade B reflux esophagitis: The scope was then withdrawn into the stomach adequately insufflated with air and upon careful examination the antrum and mild gastritis and biopsies were done from this area. Mucosa of the body, cardia and fundus appeared normal. The scope was then withdrawn into the esophagus. Treatment: Protonix, GI consult, EGD, Discontinue NSAIDS, CBC Q6 hours. Can you please further clarify the documented Gastritis? [ ] Acute Gastritis with bleeding [ ] Acute Gastritis without bleeding [ ] Other, please specify [ ] Unable to determine GI bleed is from duodenal ulcer and not gastritis. Dr.K Cervantes (Template Last Revised: November 2020) MTDD
== END 2024-11-24 15:26 | disposition home or self-care (01) | DRG 659 ==
LOC: EC 09:56 → 6NMEDSUR 14:57 → OBSVTOIN 14:58 → 6NMEDSUR 15:36
PROVIDERS: ADMIT Internal Medicine; ATTEND Internal Medicine
PROC: 0TC18ZZ Extirpation of Matter from Left Kidney, Via Natural or Artificial Opening Endoscopic (ICD-10-PCS; principal; 2024-11-22 11:10)
PROC: BT1F1ZZ Fluoroscopy of Left Kidney, Ureter and Bladder using Low Osmolar Contrast (ICD-10-PCS; principal; 2024-11-22 11:10)
PROC: 0T778DZ Dilation of Left Ureter with Intraluminal Device, Via Natural or Artificial Opening Endoscopic (ICD-10-PCS; principal; 2024-11-22 11:10)
PROC: 0TC78ZZ Extirpation of Matter from Left Ureter, Via Natural or Artificial Opening Endoscopic (ICD-10-PCS; principal; 2024-11-22 11:10)
PROC: 0DB78ZX Excision of Stomach, Pylorus, Via Natural or Artificial Opening Endoscopic, Diagnostic (ICD-10-PCS; 2024-11-24 08:35)
PROC: 0DB58ZX Excision of Esophagus, Via Natural or Artificial Opening Endoscopic, Diagnostic (ICD-10-PCS; 2024-11-24 08:35)
PROC: 0DBK8ZX Excision of Ascending Colon, Via Natural or Artificial Opening Endoscopic, Diagnostic (ICD-10-PCS; 2024-11-24 08:35)
DX: N13.2 Hydronephrosis with renal and ureteral calculous obstruction (principal); K26.4 Chronic or unspecified duodenal ulcer with hemorrhage; K74.60 Unspecified cirrhosis of liver; D62 Acute posthemorrhagic anemia; I48.91 Unspecified atrial fibrillation; N17.9 Acute kidney failure, unspecified; K21.00 Gastro-esophageal reflux disease with esophagitis, without bleeding; K22.70 Barrett's esophagus without dysplasia; M54.9 Dorsalgia, unspecified; K29.70 Gastritis, unspecified, without bleeding; Y99.0 Civilian activity done for income or pay; K44.9 Diaphragmatic hernia without obstruction or gangrene; R19.5 Other fecal abnormalities; K59.03 Drug induced constipation; K63.5 Polyp of colon; R31.0 Gross hematuria; T40.2X5A Adverse effect of other opioids, initial encounter; X50.0XXS Overexertion from strenuous movement or load, sequela; Z79.899 Other long term (current) drug therapy; Z87.891 Personal history of nicotine dependence
CPT/HCPCS: 36415; 43239; 45380; 74177; 80048; 80053; 81003; 82150; 82272; 82365; 83605; 83690; 83735; 85025; 85027; 86850; 86900; 86901; 88305; 88342; 93005; 96361; 96374; 96375; 99285

== ENCOUNTER → 2025-01-10 | Outpatient (CLI) | payer BC ==
--- NOTE | 2025-01-10 17:27 | US ---
EXAMINATION TYPE: US kidneys/renal and bladder DATE OF EXAM: 01/10/2025 COMPARISON: Correlation CT 11/21/2024 CLINICAL INDICATION: Male, 54 years old with history of N132 HYDRONEPHROSIS; recent left sided stone with hydronephrosis, no pain TECHNIQUE: Grayscale imaging of the bilateral kidneys and urinary bladder: FINDINGS: EXAM MEASUREMENTS: Right Kidney: 11.7 x 5.3 x 5.8 cm Left Kidney: 12.6 x 5.2 x 6.5 cm Right Kidney: No hydronephrosis or masses seen Left Kidney: No hydronephrosis or masses seen Bladder: Distended without gross abnormality. IMPRESSION: The previously seen left-sided hydronephrosis appears to have resolved. No hydronephrosis on either s radha. [facility], , 01/10/2025 5:24 PM
== END | disposition home or self-care (01) ==
LOC: RADUSWWP 15:51
PROVIDERS: ATTEND Urology
DX: N13.2 Hydronephrosis with renal and ureteral calculous obstruction (principal)
CPT/HCPCS: 76770